=== PATIENT | male | born 1940 | race Hispanic/Latino ===

== ENCOUNTER 2018-09-04 07:36 | Inpatient (IN) | payer MEDICARE ==
[2018-09-04] MEDS ORDERED: ASPIRIN PO ONE (07:40)
[2018-09-04 08:03] LABS: Basophils # (Auto) 0.1 K/mm3 (0.0-0.1); Basophils % (Auto) 1.1 % (0.0-1.8); Eosinophils # (Auto) 0.1 K/mm3 (0.0-0.4); Eosinophils % (Auto) 0.6 % (0.0-4.3); Hematocrit 43.9 % (35.5-45.6); Hemoglobin 15.4 gm/dl (11.8-15.2); Lymphocytes # (Auto) 2.5 K/mm3 (1.2-5.4); Lymphocytes % (Auto) 28.5 % (13.4-35.0); Mean Corpuscular HGB Conc 35 % (32-34); Mean Corpuscular Volume 91 fl (84-94); Monocytes # (Auto) 0.6 K/mm3 (0.0-0.8); Monocytes % (Auto) 6.4 % (0.0-7.3); Platelet Count 294 K/mm3 (140-440); Red Cell Distribution Width 13.9 % (13.2-15.2)
--- NOTE | 2018-09-04 08:18 | XRay Report ---
PROCEDURE: XR CHEST ROUTINE 2V TECHNIQUE: PA and lateral chest radiographs were obtained. HISTORY: Chest Pain COMPARISONS: None. FINDINGS: No mediastinal shift. Cardiomegaly. Overlying sternotomy wires. Predominantly linear lingular opacity . Diffuse interstitial prominence. No pneumothorax or effusion. No acute skeletal finding. IMPRESSION: Sequela of prior heart surgery including lingular scarring/atelectasis. Mild interstitial edema versu s scarring is also present without definite effusion. This document is electronically signed by Miguel A Shafer MD., Sep 04 2018 08:16:00 AM ET
[2018-09-04 08:26] LABS: BUN/Creatinine Ratio 10; Blood Urea Nitrogen 11 mg/dL (9-20); Calcium 8.7 mg/dL (8.4-10.2); Hemolysis Index 4
--- NOTE | 2018-09-04 08:37 | Emergency Department Report ---
ED Chest Pain HPI - General Chief Complaint: Chest Pain Stated Complaint: CHEST PAIN Time Seen by Provider: 09/04/18 07:57 Source: patient, family Mode of arrival: Ambulatory Limitations: No Limitations - History of Present Illness Initial Comments: 78-year-old male with history of dementia, CAD presents to ED with left-sided chest pain since last night. Patient states pain woke him up from sleep. Patient denies nausea, vomiting, shortness of breath, diaphoresis. Pain is described as a tightness, nonradiating. Patient states he is not currently taking any medications. 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 PCP: Dr Francisco Huerta MD Complaint: chest pain -: Last night Onset: during rest Pain Location: left chest Pain Radiation: none Severity: moderate Quality: tightness Consistency: constant Improves With: nothing Worsens With: nothing re: denies: nausea, vomting, diaphoresis, dyspnea Treatments Prior to Arrival: none - Related Data Home Medications Medication Instructions Recorded Confirmed Last Taken Aspirin 325 mg FEEDTUBE ONCE 09/22/13 09/03/14 09/03/14 325 MG Escitalopram Oxalate [Lexapro] 10 mg FEEDTUBE QDAY 09/22/13 09/03/14 09/03/14 10 MG [place]-3 Fatty Acids [[place]-3] 1,000 mg FEEDTUBE BID 09/22/13 09/03/14 09/03/14 1,000 mg Ipratropium/Albuterol Sulfate 1 ampul IH Q8HRT 10/12/13 09/03/14 09/02/14 [DUONEB *Not for PRN Use*] 1 Previous Rx's Medication Instructions Recorded Last Taken Type Zolpidem [Ambien] 5 mg PO DAILY #15 tablet 09/30/13 09/03/14 Rx 5 mg Ferrous Sulfate [Feosol 325 MG tab] 325 mg PO TID #30 tablet 10/19/13 09/03/14 Rx 325 MG Lipase/Protease/Amylase [Pancreaze 1 each FEEDTUBE PRN PRN 30 Days 10/19/13 09/02/14 Rx 10,500 Unit] capsule 1 Metoprolol [Lopressor TAB] 12.5 mg PO BID #60 tablet 10/19/13 09/03/14 Rx 25 mg Sodium Bicarbonate 325 mg FEEDTUBE PRN PRN 30 Days 10/19/13 09/02/14 Rx tablet 325 mg Lisinopril [Zestril TAB] 2.5 mg PO QDAY #30 tablet 09/07/14 Unknown Rx Rosuvastatin Calcium [Crestor] 40 mg FEEDTUBE QHS #30 tablet 09/07/14 Unknown Rx ISOSORBIDE MONOnitrate [Imdur] 30 mg PO DAILY #7 tab.er.24h 09/08/14 Unknown Rx Nitroglycerin [Nitrostat] 0.4 mg SL ONCE PRN #30 tab 09/08/14 Unknown Rx Allergies Allergy/AdvReac Type Severity Reaction Status Date / Time Penicillins Allergy Rash Verified 12/24/15 14:34 Heart Score - HEART Score History: Slightly suspicious EKG: Non-specific Age: > 65 Risk factors: > 3 risk factors or hx of atherosclerotic disease Troponin: < normal limit HEART Score: 5 ED Review of Systems ROS: Stated complaint: CHEST PAIN Other details as noted in HPI Comment: All other systems reviewed and negative Respiratory: denies: cough, shortness of breath Cardiovascular: chest pain Gastrointestinal: denies: nausea, vomiting ED Past Medical Hx - Past Medical History Previous Medical History?: Yes Hx Hypertension: Yes Hx Heart Attack/AMI: Yes Hx Congestive Heart Failure: Yes Hx Diabetes: Yes Hx Liver Disease: Yes Hx Kidney Stones: Yes Additional medical history: high cholesterol. CAD - Surgical History Past Surgical History?: Yes Hx Open Heart Surgery: Yes Additional Surgical History: 5 bypass, back surgery, kidney surgery - Social History Smoking Status: Current Every Day Smoker Substance Use Type: Prescribed - Medications Home Medications: Home Medications Medication Instructions Recorded Confirmed Last Taken Type Aspirin 325 mg FEEDTUBE ONCE 09/22/13 09/03/14 09/03/14 History 325 MG Escitalopram Oxalate [Lexapro] 10 mg FEEDTUBE QDAY 09/22/13 09/03/14 09/03/14 History 10 MG [place]-3 Fatty Acids [[place]-3] 1,000 mg FEEDTUBE BID 09/22/13 09/03/14 09/03/14 History 1,000 mg Zolpidem [Ambien] 5 mg PO DAILY #15 tablet 09/30/13 09/03/14 09/03/14 Rx 5 mg Ipratropium/Albuterol Sulfate 1 ampul IH Q8HRT 10/12/13 09/03/14 09/02/14 History [DUONEB *Not for PRN Use*] 1 Ferrous Sulfate [Feosol 325 MG tab] 325 mg PO TID #30 tablet 10/19/13 09/03/14 09/03/14 Rx 325 MG Lipase/Protease/Amylase [Pancreaze 1 each FEEDTUBE PRN PRN 30 Days 10/19/13 09/03/14 09/02/[address] 10,500 Unit] capsule 1 Metoprolol [Lopressor TAB] 12.5 mg PO BID #60 tablet 10/19/13 09/03/14 09/03/14 Rx 25 mg Sodium Bicarbonate 325 mg FEEDTUBE PRN PRN 30 Days 10/19/13 09/03/14 09/02/14 Rx tablet 325 mg Lisinopril [Zestril TAB] 2.5 mg PO QDAY #30 tablet 09/07/14 Unknown Rx Rosuvastatin Calcium [Crestor] 40 mg FEEDTUBE QHS #30 tablet 09/07/14 Unknown Rx ISOSORBIDE MONOnitrate [Imdur] 30 mg PO DAILY #7 tab.er.24h 09/08/14 Unknown Rx Nitroglycerin [Nitrostat] 0.4 mg SL ONCE PRN #30 tab 09/08/14 Unknown Rx ED Physical Exam - General Limitations: No Limitations General appearance: alert, in no apparent distress - Head Head exam: Present: atraumatic, normocephalic - Eye Eye exam: Present: normal appearance - ENT ENT exam: Present: mucous membranes moist - Neck Neck exam: Present: normal inspection - Respiratory Respiratory exam: Present: normal lung sounds bilaterally. Absent: respiratory distress - Cardiovascular Cardiovascular Exam: Present: regular rate, normal rhythm - GI/Abdominal GI/Abdominal exam: Present: soft. Absent: distended, tenderness - Extremities Exam Extremities exam: Present: normal inspection - Neurological Exam Neurological exam: Present: alert - Psychiatric Psychiatric exam: Present: normal affect, normal mood - Skin Skin exam: Present: warm, dry, intact, normal color ED Course Vital Signs 09/04/18 09/04/18 09/04/18 07:37 08:28 08:30 Temperature 967.7 F H Pulse Rate 71 60 Respiratory 18 12 12 Rate Blood Pressure 162/83 151/74 O2 Sat by Pulse 98 96 Oximetry 09/04/18 09/04/18 09/04/18 08:45 08:49 09:03 Temperature 97.8 F Pulse Rate 60 59 L Respiratory 19 Rate Blood Pressure 151/72 O2 Sat by Pulse 91 Oximetry OLIVIER score - Olivier Score Age > 65: (1) Yes Aspirin use within the Past 7 Days: (1) Yes 3 or more CAD Risk Factors: (1) Yes 2 or more Angina events in past 24 hrs: (1) Yes Known CAD with more than 50% Stenosis: (1) Yes Elevated Cardiac Markers: (0) No ST Deviation Greater than 0.5mm: (0) No OLIVIER Score: 5 ED Medical Decision Making - Lab Data Result diagrams: 09/04/18 07:47 09/04/18 07:47 - EKG Data -: EKG Interpreted by Me EKG shows normal: sinus rhythm, axis, QRS complexes, ST-T waves Rate: normal - EKG Data Interpretation: LVH, other (prolonged NE, anterior Q waves) Critical care attestation.: If time is entered above; I have spent that time in minutes in the direct care of this critically ill patient, excluding procedure time. ED Disposition Clinical Impression: Chest pain Disposition: DC-09 OP ADMIT IP TO THIS HOSP Is pt being admited?: Yes Condition: Stable Time of Disposition: 08:43
[2018-09-04] MEDS ORDERED: NITROSTAT SL PRN (08:58)
[2018-09-04] MEDS ORDERED: NITROSTAT SL ONE (09:04)
[2018-09-04] MEDS: NITROSTAT SL PRN ×2 (09:05→09:10)
--- NOTE | 2018-09-04 10:42 | Consultation ---
History of Present Illness Consult date: 09/04/18 Consult reason: chest pain History of present illness: 78 year old male presented with left precordial chest pain at rest rad iating into his left shoulder. He denies any diaphoresis nausea or vomiting. Patient has a history of coronary artery disease and is status post coronary artery bypass surgery in 1995 regular [address] Dr[address] Florian Verdugo and his last cardiac catheterization was in 2014. At that time cardiac cocci shown nonobstructive disease in the left anterior descending artery as well as the circumflex artery with total occlusion in the right coronary artery the saphenous vein graft to the obtuse marginal diagonal now a right coronary artery as well as a DUFF to the LAD with essentially. Patient's left ventricular ejection fraction was 45-50%. His last visits with Dr. Verdugo was a couple of months ago. Past History Past Medical History: CAD, diabetes, hypertension, hyperlipidemia Past Surgical History: CABG Social history: smoking. denies: alcohol abuse Family history: no significant family history Medications and Allergies Allergies Allergy/AdvReac Type Severity Reaction Status Date / Time Penicillins Allergy Rash Verified 12/24/15 14:34 Home Medications Medication Instructions Recorded Confirmed Last Taken Type Donepezil [Aricept] 10 mg PO DAILY 09/04/18 09/04/18 09/03/18 History Memantine [Namenda] 10 mg PO DAILY 09/04/18 09/04/18 09/03/18 History QUEtiapine [SEROquel] 100 mg PO QDAY 09/04/18 09/04/18 09/03/18 History clonazePAM 2 mg PO BID 09/04/18 09/04/18 09/03/18 History Active Meds: Active Medications Nitroglycerin (Nitrostat) 0.4 mg SL .Q5MIN PRN PRN Reason: Chest Pain Last Admin: 09/04/18 09:10 Dose: 0.4 mg Documented by: Nitroglycerin (Nitrostat) 0.4 mg SL .Q5MIN PRN PRN Reason: Chest Pain Review of Systems Constitutional: no weight loss, no weight gain, no fatigue, no weakness Ears, nose, mouth and throat: no deferred, no ear pain, no nose pain, no dental pain, no mouth pain, no dysphagia Cardiovascular: chest pain, dyspnea on exertion, no orthopnea, no palpitations, no syncope, no lightheadedness Respiratory: no cough, no cough with sputum, no hemoptysis, no congestion, no pleurisy Gastrointestinal: no abdominal pain, no nausea, no vomiting, no melena Genitourinary Male: no dysuria, no hematuria, no flank pain Rectal: pain Musculoskeletal: no neck stiffness, no neck pain Integumentary: no rash, no pruritis Neurological: no paralysis, no weakness, no parathesias, no numbness, no vertigo Endocrine: no cold intolerance, no nocturia Hematologic/Lymphatic: no easy bruising, no easy bleeding Allergic/Immunologic: no urticaria, no allergic rhinitis Physical Examination Vital Signs Temp Pulse Resp BP Pulse Ox 97.7 F 71 18 162/83 98 09/04/18 07:37 09/04/18 07:37 09/04/18 07:37 09/04/18 07:37 09/04/18 07:37 General appearance: no acute distress, well-nourished HEENT: Positive: PERRL, Mucus Membranes Moist Neck: Positive: neck supple, trachea midline Cardiac: Positive: Reg Rate and Rhythm, S1/S2, S4, PMI, Laterally Displaced. Negative: Audible Murmur Lungs: Positive: clear to auscultation, Normal Breath Sounds Neuro: Positive: Grossly Intact Abdomen: Positive: Soft, Active Bowel Sounds. Negative: Tender, Distended Male genitourinary: Positive: normal Skin: Positive: Clear Incision: Cardiac Cath Site Musculoskeletal: No Pain, Normal Range of Motion Extremities: Present: normal. Absent: edema Results 09/04/18 07:47 09/04/18 07:47 CBC 09/04/18 Range/Units 07:47 WBC 8.9 (4.5-11.0) K/mm3 RBC 4.80 (3.65-5.03) M/mm3 Hgb 15.4 H (11.8-15.2) gm/dl Hct 43.9 (35.5-45.6) % Plt Count 294 (140-440) K/mm3 Lymph # 2.5 (1.2-5.4) K/mm3 Avery # 0.6 (0.0-0.8) K/mm3 Eos # 0.1 (0.0-0.4) K/mm3 Baso # 0.1 (0.0-0.1) K/mm3 Comprehensive Metabolic Panel 05/25/19 Range/Units 07:47 Sodium 143 (137-145) mmol/L Potassium 3.5 L (3.6-5.0) mmol/L Chloride 103.8 (98-107) mmol/L Carbon Dioxide 26 (22-30) mmol/L BUN 11 (9-20) mg/dL Creatinine 1.1 (0.8-1.5) mg/dL Glucose 141 H (75-100) mg/dL Calcium 8.7 (8.4-10.2) mg/dL EKG interpretations - Telemetry EKG Rhythm: Sinus Rhythm Assessment and Plan 1. Chest pain rule out ischemic coronary artery disease 2. History of coronary artery disease status posth coronary artery bypass surgery. 3. Essential hypertension 4. Type 2 diabetes mellitus 5. Hyper lipidemia 6. Dementia without behavioral abnormality. Plan. Patient currently stable and chest pain-free with start on anti-platelet therapy trans-derm nitroglycerin glycerin ointment and anticoagulation. Obtain records from Dr. Florian Verdugo's office regarding recent cardiac workup.
--- NOTE | 2018-09-04 13:33 | History and Physical Report ---
History of Present Illness Date of examination: 09/04/18 Date of admission: 09/04/18 08:43 Chief complaint: Chest pain History of present illness: Patient is 78 yo with coronary artery disease s/p CABG, hypertension, dementia. he presents with chest pain, left sided , 8/10, no radialtion. Chest pain like a tightness, worse on exertion. No shortness of breath, no fever, no diaphoresis, no syncope. He was seen evaluated in Emergency Dept. Cardiac enzymes normal. Wi ll admit to telemetry. Past History Past Medical History: CAD, diabetes, hypertension, hyperlipidemia Past Surgical History: CABG Social history: smoking. denies: alcohol abuse Family history: no significant family history Medications and Allergies Allergies Allergy/AdvReac Type Severity Reaction Status Date / Time Penicillins Allergy Rash Verified 12/24/15 14:34 Home Medications Medication Instructions Recorded Confirmed Last Taken Type Donepezil [Aricept] 10 mg PO DAILY 09/04/18 09/04/18 09/03/18 History Memantine [Namenda] 10 mg PO DAILY 09/04/18 09/04/18 09/03/18 History QUEtiapine [SEROquel] 100 mg PO QDAY 09/04/18 09/04/18 09/03/18 History clonazePAM 2 mg PO BID 09/04/18 09/04/18 09/03/18 History Active Meds: Active Medications Nitroglycerin (Nitrostat) 0.4 mg SL .Q5MIN PRN PRN Reason: Chest Pain Review of Systems All systems: negative (No fever, no abd pain, no vomiting. All other sy) Exam - Physical Exam Narrative exam: Gen: Not in acute distress, lying in bed, obese HEENT: Normocephalic, atraumatic Neck: supple, no JVD Heart: S1 and S2 reg, no murmurs, rubs or gallop Lungs: Clear, no crackles, no wheeze Abd: soft, non tender, non distended, normal BS Ext: No edema, no clubbing, no cyanosis, Neuro: Awake,alert, oriented x 3, moves all ext, non focal Psych:Normal mood, dementia - Constitutional Vitals: Temp Pulse Resp BP Pulse Ox 98.3 F 60 18 119/57 96 09/04/18 11:09 09/04/18 11:09 09/04/18 11:09 09/04/18 11:09 09/04/18 11:09 Results - Labs CBC & Chem 7: 09/05/18 22:30 09/05/18 22:30 Labs: Abnormal lab results 09/04/18 09/04/18 Range/Units 07:47 07:47 Hgb 15.4 H (11.8-15.2) gm/dl MCHC 35 H (32-34) % Potassium 3.5 L (3.6-5.0) mmol/L Glucose 141 H (75-100) mg/dL Assessment and Plan Chest pain Admit to telemetry Cardiology consulted and i discussed case with him Aspirin daily Serial Troponins CAD s/p CABG Aspirin Diabetes mellitus type 2 Fingerstick qac and hs Hypertension Monitor BP Full code status
[2018-09-04] MEDS ORDERED: PROVENTIL IH PRN (14:22)
[2018-09-04] MEDS ORDERED: SODIUM CHLORIDE FLUSH SYRINGE 10 ML IV PRN ×2 (14:22→14:25)
[2018-09-04] MEDS ORDERED: TYLENOL PO PRN (14:22)
[2018-09-04] MEDS: MORPHINE IV PRN (15:32)
[2018-09-04] MEDS: ZOFRAN IV PRN (15:32)
[2018-09-04] MEDS: ARICEPT PO SCH (15:32)
[2018-09-04] MEDS: NAMENDA PO SCH (15:32)
[2018-09-04] MEDS: SODIUM CHLORIDE FLUSH SYRINGE 10 ML IV SCH (22:58)
[2018-09-05] MEDS: MORPHINE IV PRN ×4 (05:04→18:14)
[2018-09-05 08:28] LABS: Hemoglobin 18.1 gm/dl (11.8-15.2); Mean Corpuscular HGB Conc 34 % (32-34); Mean Corpuscular Volume 92 fl (84-94); Platelet Count 356 K/mm3 (140-440); Red Blood Count 5.78 M/mm3 (3.65-5.03); Red Cell Distribution Width 14.1 % (13.2-15.2)
[2018-09-05 08:39] LABS: Hematocrit 53.2 % (35.5-45.6)
[2018-09-05 08:51] LABS: Calcium 8.6 mg/dL (8.4-10.2)
[2018-09-05] MEDS: NAMENDA PO SCH (09:23)
[2018-09-05] MEDS: ECOTRIN PO SCH (09:23)
[2018-09-05] MEDS: ARICEPT PO SCH (09:24)
[2018-09-05] MEDS: SODIUM CHLORIDE FLUSH SYRINGE 10 ML IV SCH ×2 (09:26→23:08)
--- NOTE | 2018-09-05 09:53 | Progress Note ---
Assessment and Plan 1. Chest pain rule out ischemic coronary artery disease 2. History of coronary artery disease status posth coronary artery bypass surgery. 3. Essential hypertension 4. Type 2 diabetes mellitus 5. Hyper lipidemia 6. COPD 7. Dementia without behavioral abnormality. Plan. Patient is stable and chest pain free . Troponin levels are normal. follow up with Dr Florian mott on discharge Subjective Date of service: 09/05/18 Interval history: No cardiac symptoms. Objective Vital Signs Temp Pulse Pulse Resp BP Pulse Ox 09/05/18 07:45 98.0 F 97 H 20 128/78 90 09/05/18 04:35 98.5 F 100 H 16 134/77 91 09/05/18 01:00 101 H 09/04/18 23:55 98.3 F 101 H 16 158/84 92 09/04/18 22:00 105 H 18 92 09/04/18 19:22 98.8 F 17 148/73 09/04/18 19:00 105 H 93 H 09/04/18 16:17 97.9 F 91 H 18 148/78 91 09/04/18 11:09 98.3 F 60 18 119/57 96 09/04/18 10:10 58 L 18 105/56 94 09/04/18 10:03 97.7 F 09/04/18 10:00 58 L 18 105/56 92 - Physical Examination General: Appears Well, No Apparent Distress HEENT: Positive: PERRL, Mucus Membranes Moist Neck: Positive: neck supple, trachea midline. Negative: JVD/HJR Cardiac: Positive: Regular Rate, S1/S2, PMI, Laterally Displaced. Negative: S3, S4 Lungs: Positive: clear to auscultation, No Wheeze, Rales, Rhonchi Neuro: Positive: Grossly Intact, No Lateralizing Findings Abdomen: Positive: Soft, Active Bowel Sounds. Negative: Tender, Distended Skin: Positive: Clear Incision: Cardiac Cath Site Musculoskeletal: No Pain, Normal Range of Motion Extremities: Present: normal. Absent: edema - Labs and Meds CBC 09/05/18 Range/Units 07:58 WBC 13.5 H (4.5-11.0) K/mm3 RBC 5.78 H (3.65-5.03) M/mm3 Hgb 18.1 H (11.8-15.2) gm/dl Hct 53.2 H D (35.5-45.6) % Plt Count 356 (140-440) K/mm3 Comprehensive Metabolic Panel 09/05/18 Range/Units 07:58 Sodium 141 (137-145) mmol/L Potassium 3.6 (3.6-5.0) mmol/L Chloride 101.2 (98-107) mmol/L Carbon Dioxide 18 L D (22-30) mmol/L BUN 29 H (9-20) mg/dL Creatinine 2.1 H D (0.8-1.5) mg/dL Glucose 152 H (75-100) mg/dL Calcium 8.6 (8.4-10.2) mg/dL - Telemetry EKG Rhythm: Sinus Rhythm - EKG Sinus rhythms and dysrhythmias: sinus rhythm
[2018-09-05] MEDS ORDERED: LOVENOX SUB-Q SCH (10:00)
[2018-09-05 10:51] LABS: Band Neutrophils # (Manual) 2.3 K/mm3; Basophils % (Manual) 0 % (0.0-1.8); Eosinophils % (Manual) 0 % (0.0-4.3); Platelet Estimate Consistent w Auto; RBC Morphology Normal; Total Cells Counted 100
[2018-09-05 11:55] LABS: Hematocrit 51.6 % (35.5-45.6); Hemoglobin 17.5 gm/dl (11.8-15.2); Mean Corpuscular HGB Conc 34 % (32-34); Mean Corpuscular Volume 92 fl (84-94); Platelet Count 322 K/mm3 (140-440); Red Cell Distribution Width 14.4 % (13.2-15.2)
[2018-09-05 12:13] LABS: Calcium 8.4 mg/dL (8.4-10.2)
[2018-09-05] MEDS ORDERED: NACL 0.9% 1000 ML 1,000 ML IV SCH (13:00)
--- NOTE | 2018-09-05 15:18 | Progress Note ---
Assessment and Plan Assessment and plan: Chest pain Admitted to telemetry Cardiology evaluated and states stable cardiac thompson Aspirin daily Serial Troponins neg Acute kidney Injury Cr 2.1, was 1.1 on admission Etiology unclear will start NS Consult Nephrology Obtain renal Ultrasound CAD s/p CABG Aspirin Diabetes mellitus type 2 Fingerstick qac and hs Hypertension Monitor BP Called [employer], Covered Button [employer] to transfer call to room to talk to son, family. She states , no phone in room and gave me cell phone to call Called son [phone] right away but no answer. Will update tomorrow Full code status History Interval history: No more chest pain No shortness of breath Hospitalist Physical - Physical exam Narrative exam: Gen: Not in acute distress, lying in bed, obese HEENT: Normocephalic, atraumatic Neck: supple, no JVD Heart: S1 and S2 reg, no murmurs, rubs or gallop Lungs: Clear, no crackles, no wheeze Abd: soft, non tender, non distended, normal BS Ext: No edema, no clubbing, no cyanosis, Neuro: Awake,alert, oriented x 3, moves all ext, non focal Psych:Normal mood, dementia - Constitutional Vitals: Temp Pulse Resp BP Pulse Ox 98.0 F 102 H 18 121/69 90 09/05/18 11:30 09/05/18 11:30 09/05/18 11:30 09/05/18 11:30 09/05/18 11:30 General appearance: Present: no acute distress, obese Results - Labs CBC & Chem 7: 09/05/18 22:30 09/05/18 22:30 Labs: Laboratory Last Values WBC 10.7 K/mm3 (4.5-11.0) 09/05/18 11:42 RBC 5.60 M/mm3 (3.65-5.03) H 09/05/18 11:42 Hgb 17.5 gm/dl (11.8-15.2) H 09/05/18 11:42 Hct 51.6 % (35.5-45.6) H 09/05/18 11:42 MCV 92 fl (84-94) 09/05/18 11:42 MCH 31 pg (28-32) 09/05/18 11:42 MCHC 34 % (32-34) 09/05/18 11:42 RDW 14.4 % (13.2-15.2) 09/05/18 11:42 Plt Count 322 K/mm3 (140-440) 09/05/18 11:42 Lymph % (Auto) 28.5 % (13.4-35.0) 09/04/18 07:47 [place]son % (Auto) 6.4 % (0.0-7.3) 09/04/18 07:47 Eos % (Auto) 0.6 % (0.0-4.3) 09/04/18 07:47 Baso % (Auto) 1.1 % (0.0-1.8) 09/04/18 07:47 Lymph # 2.5 K/mm3 (1.2-5.4) 09/04/18 07:47 [place]son # 0.6 K/mm3 (0.0-0.8) 09/04/18 07:47 Eos # 0.1 K/mm3 (0.0-0.4) 09/04/18 07:47 Baso # 0.1 K/mm3 (0.0-0.1) 09/04/18 07:47 Add Manual Diff Complete 09/05/18 07:58 Total Counted 100 09/05/18 07:58 Seg Neutrophils % 63.4 % (40.0-70.0) 09/04/18 07:47 Seg Neuts % (Manual) 62.0 % (40.0-70.0) 09/05/18 07:58 17.0 % 09/05/18 07:58 14.0 % (13.4-35.0) 09/05/18 07:58 Reactive Lymphs % (Man) 0 % 09/05/18 07:58 3.0 % (0.0-7.3) 09/05/18 07:58 0 % (0.0-4.3) 09/05/18 07:58 0 % (0.0-1.8) 09/05/18 07:58 4.0 % 09/05/18 07:58 0 % 09/05/18 07:58 0 % 09/05/18 07:58 0 % 09/05/18 07:58 Nucleated RBC % Not Reportable 09/05/18 07:58 Seg Neutrophils # 5.6 K/mm3 (1.8-7.7) 09/04/18 07:47 Seg Neutrophils # Man 8.4 K/mm3 (1.8-7.7) H 09/05/18 07:58 Band Neutrophils # 2.3 K/mm3 09/05/18 07:58 1.9 K/mm3 (1.2-5.4) 09/05/18 07:58 Abs React Lymphs (Man) 0.0 K/mm3 09/05/18 07:58 0.4 K/mm3 (0.0-0.8) 09/05/18 07:58 0.0 K/mm3 (0.0-0.4) 09/05/18 07:58 0.0 K/mm3 (0.0-0.1) 09/05/18 07:58 0.5 K/mm3 09/05/18 07:58 0.0 K/mm3 09/05/18 07:58 0.0 K/mm3 09/05/18 07:58 Blast Cells # 0.0 K/mm3 09/05/18 07:58 WBC Morphology Not Reportable 09/05/18 07:58 WBC Morphology TNR 09/05/18 07:58 Hypersegmented Neuts Not Reportable 09/05/18 07:58 Hyposegmented Neuts Not Reportable 09/05/18 07:58 Hypogranular Neuts Not Reportable 09/05/18 07:58 Not Reportable 09/05/18 07:58 Not Reportable 09/05/18 07:58 Not Reportable 09/05/18 07:58 Not Reportable 09/05/18 07:58 Not Reportable 09/05/18 07:58 Not Reportable 09/05/18 07:58 Consistent w auto 09/05/18 07:58 Not Reportable 09/05/18 07:58 Plt Clumps, EDTA Not Reportable 09/05/18 07:58 Not Reportable 09/05/18 07:58 Not Reportable 09/05/18 07:58 Not Reportable 09/05/18 07:58 Plt Morphology Comment Not Reportable 09/05/18 07:58 RBC Morphology Normal 09/05/18 07:58 Dimorphic RBCs Not Reportable 09/05/18 07:58 Not Reportable 09/05/18 07:58 Not Reportable 09/05/18 07:58 Not Reportable 09/05/18 07:58 Not Reportable 09/05/18 07:58 Not Reportable 09/05/18 07:58 Not Reportable 09/05/18 07:58 Not Reportable 09/05/18 07:58 Not Reportable 09/05/18 07:58 Not Reportable 09/05/18 07:58 Not Reportable 09/05/18 07:58 Not Reportable 09/05/18 07:58 Not Reportable 09/05/18 07:58 Not Reportable 09/05/18 07:58 Not Reportable 09/05/18 07:58 Not Reportable 09/05/18 07:58 Not Reportable 09/05/18 07:58 Not Reportable 09/05/18 07:58 Not Reportable 09/05/18 07:58 Not Reportable 09/05/18 07:58 Acanthocytes (Spur) Not Reportable 09/05/18 07:58 Rouleaux Not Reportable 09/05/18 07:58 Not Reportable 09/05/18 07:58 Not Reportable 09/05/18 07:58 Not Reportable 09/05/18 07:58 Not Reportable 09/05/18 07:58 Hem Pathologist Commnt No 09/05/18 07:58 Sodium 140 mmol/L (137-145) 09/05/18 11:42 Potassium 4.5 mmol/L (3.6-5.0) D 09/05/18 11:42 Chloride 101.9 mmol/L (98-107) 09/05/18 11:42 Carbon Dioxide 22 mmol/L (22-30) 09/05/18 11:42 21 mmol/L 09/05/18 11:42 BUN 35 mg/dL (9-20) H 09/05/18 11:42 2.7 mg/dL (0.8-1.5) H 09/05/18 11:42 Estimated GFR 23 ml/min 09/05/18 11:42 13 % 09/05/18 11:42 Glucose 176 mg/dL (75-100) H 09/05/18 11:42 Calcium 8.4 mg/dL (8.4-10.2) 09/05/18 11:42 < 0.010 ng/mL (0.00-0.029) 09/04/18 13:41 NT-Pro-B Natriuret Pep 278.8 pg/mL (0-900) 09/04/18 08:27 Active Medications - Current Medications Current Medications: Generic Name Dose Route Start Last Admin Trade Name Freq PRN Reason Stop Dose Admin Acetaminophen 650 mg 09/04/18 14:22 Tylenol PO Q4H PRN Pain MILD(1-3)/Fever >100.5/FONTANEZ Albuterol 2.5 mg 09/04/18 14:22 Proventil IH Q4HRT PRN Shortness Of Breath Aspirin 325 mg 09/05/18 10:00 09/05/18 09:23 Ecotrin PO 325 mg QDAY AMBROSE Administration Clonazepam 2 mg 09/04/18 22:00 09/05/18 09:23 Klonopin PO 2 mg BID AMBROSE Administration Donepezil HCl 10 mg 09/04/18 15:00 09/05/18 09:24 Aricept PO 10 mg DAILY AMBROSE Administration Enoxaparin Sodium 40 mg 09/05/18 10:00 09/05/18 09:24 Lovenox SUB-Q 40 mg DAILY AMBROSE Administration Sodium Chloride 1,000 mls @ 100 mls/hr 09/05/18 13:00 09/05/18 12:45 Nacl 0.9% 1000 Ml IV 100 mls/hr DIRECT AMBROSE Administration Memantine 10 mg 09/04/18 15:00 09/05/18 09:23 Namenda PO 10 mg DAILY AMBROSE Administration Morphine Sulfate 2 mg 09/04/18 14:22 09/05/18 14:28 Morphine IV 2 mg Q4H PRN Administration Pain, Moderate (4-6) Nitroglycerin 0.4 mg 09/04/18 08:58 Nitrostat SL .Q5MIN PRN Chest Pain Ondansetron HCl 4 mg 09/04/18 14:22 09/04/18 15:32 Zofran IV 4 mg Q8H PRN Administration Nausea And Vomiting Quetiapine Fumarate 100 mg 09/04/18 15:00 09/05/18 09:23 Seroquel PO 100 mg QDAY AMBROSE Administration Sodium Chloride 10 ml 09/04/18 22:00 09/05/18 09:26 Sodium Chloride Flush Syringe 10 Ml IV 10 ml BID AMBROSE Administration Sodium Chloride 10 ml 09/04/18 14:22 Sodium Chloride Flush Syringe 10 Ml IV PRN PRN LINE FLUSH Sodium Chloride 10 ml 09/04/18 14:25 Sodium Chloride Flush Syringe 10 Ml IV PRN PRN LINE FLUSH
--- NOTE | 2018-09-05 18:13 | Ultrasound Report ---
PROCEDURE: US RENAL BILAT TECHNIQUE: Transverse longitudinal sonograms obtained with costa scale sonography. HISTORY: [place] COMPARISONS: None FINDINGS: 9.8 x 5.9 x 6.2 cm. Cortex 1.7 cm. Increased cortical echogenicity. No hydronephrosis. Upper pole ech ogenic focus measuring 1.7 cm. Mid pole echogenic focus measuring 1.6 cm. Findings compatible with ca lculus. There is in addition an upper pole echogenic nodular area measuring 2.3 x 1.5 x 1.2 cm. This has the appearance of angiomyolipoma. Left kidney measures 10.4 x 5.5 x 4.7 cm. Cortex 1.6 cm. Increased cortical echogenicity. Multiple ec hogenic foci compatible with nonobstructing calculi. 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 At least 2 additional similar foci. Bladder appears unremarkable. IMPRESSION: Normal-sized kidneys Mild increase in cortical echogenicity compatible with medical renal disease No hydronephrosis Bilateral nonobstructing renal calculi 2.3 cm echogenic nodular area superior pole right kidney. Differential includes angiomyolipoma. Confi rmation of fat presence recommended with CT. This document is electronically signed by Hieu Starks MD., Sep 05 2018 06:11:14 PM ET
[2018-09-05] MEDS: ZOFRAN IV PRN (18:43)
[2018-09-05] MEDS ORDERED: LASIX ONE (20:55)
[2018-09-05] MEDS ORDERED: LASIX IV ONE (21:03)
[2018-09-05] MEDS: LOPRESSOR PO SCH ×2 (21:09→22:00)
[2018-09-05] MEDS ORDERED: SOLU-Medrol ONE (21:48)
[2018-09-05] MEDS ORDERED: LEVOPHED DRIP 4 MG/NS 250 ML 4 MG/250 ML BAG IV ONE (22:00)
[2018-09-05] MEDS ORDERED: TYLENOL PR PRN (22:10)
[2018-09-05] MEDS ORDERED: TYLENOL PR ONE (22:14)
[2018-09-05] MEDS ORDERED: LEVAQUIN 500MG/100ML 500 MG/100 ML BAG IV SCH (22:20)
[2018-09-05] MEDS ORDERED: LEVAQUIN 500MG/100ML 0 MG/0 ML BAG IV ONE (22:29)
[2018-09-05] MEDS ORDERED: LEVAQUIN 750MG/150ML 750 MG/150 ML BAG IV SCH (22:30)
[2018-09-05] MEDS ORDERED: MERREM/NS 500 MG/50 ML 500 MG/50 ML BAG IV SCH ×2 (22:30)
--- NOTE | 2018-09-05 22:31 | XRay Report ---
PROCEDURE: XR CHEST 1V AP TECHNIQUE: Chest radiograph single view. HISTORY: SOB COMPARISONS: CXR 09/04/2018 . FINDINGS: Heart: Normal. Mediastinum/Vessels: Normal. Lungs/Pleural space: Linear markings in the lingula are stable. Bony thorax: No acute osseous abnormality. Life support devices: Median sternotomy wires are again noted.. IMPRESSION: No change. Markings in the lingula are stable. This document is electronically signed by Jacqueline Satna MD., Sep 05 2018 10:28:57 PM ET
[2018-09-05] MEDS ORDERED: VASELINE LIP THERAPY TP PRN (22:39)
[2018-09-05] MEDS ORDERED: ARTIFICIAL TEARS OPHTH OINT OU PRN (22:39)
[2018-09-05] MEDS ORDERED: QUELICIN ONE (22:40)
[2018-09-05] MEDS ORDERED: AMIDATE IV ONE (22:40)
--- NOTE | 2018-09-05 22:45 | Event Note ---
CODE MET Called to see patient because he is hypotensive, diaphoretic and short of breath Symptoms started on 7pm, his IV fluids were stopped and given IV Lasix His current blood pressure is 60s systolic Patient with history of CHF, start levophed drip Check ABG, cardiac enzymes, repeat labs, cxr Give a dose of Solu-Medrol, start BiPAP Patient with decreased responsiveness, will intubate Start Levaquin, meropenem for pneumonia, rectal temp 102.1 Follow post intubation x-ray Consult critical care, transferred to ICU Discuss with family The high probability of a clinically significant, sudden or life threatening deterioration of the [CV, GI, respiratory] system(s) required my full and direct attention, intervention and personal management. The aggregate critical care time was [ 50] minutes. This time is in addition to time spent performing reported procedures but includes the following: x] Data Review and interpretation [x] Patient assessment and monitoring of vital signs [x] Documentation [x] Medication orders and management
[2018-09-05 22:49] LABS: Hematocrit 52.9 % (35.5-45.6); Hemoglobin 17.4 gm/dl (11.8-15.2); Mean Corpuscular HGB Conc 33 % (32-34); Mean Corpuscular Volume 97 fl (84-94); Red Blood Count 5.47 M/mm3 (3.65-5.03); Red Cell Distribution Width 15.1 % (13.2-15.2)
[2018-09-05 22:55] LABS: INR 1.47 (0.87-1.13)
[2018-09-05] MEDS ORDERED: LEVOPHED DRIP 4 MG/NS 250 ML 4 MG/250 ML BAG IV SCH (23:00)
[2018-09-05] MEDS ORDERED: ZOSYN/NS 3.375GM/50ML 3.375 GM/50 ML BAG IV SCH (23:00)
[2018-09-05] MEDS ORDERED: MIDAZOLAM 100 MG in NACL 0.9% 80 ML IV SCH (23:00)
[2018-09-05 23:02] LABS: BUN/Creatinine Ratio 10; Blood Urea Nitrogen 45 mg/dL (9-20); Calcium 8.8 mg/dL (8.4-10.2); Hemolysis Index 19
[2018-09-05 23:03] LABS: Platelet Count 339 K/mm3 (140-440)
--- NOTE | 2018-09-05 23:09 | XRay Report ---
PROCEDURE: XR CHEST 1V AP TECHNIQUE: Chest radiograph single view. HISTORY: Post intubation COMPARISONS: Earlier the same date . FINDINGS: Heart: Normal. Mediastinum/Vessels: Multiple sternal wires are present. Lungs/Pleural space: No consolidation or effusion. No pneumothorax. Bony thorax: No acute osseous abnormality. Life support devices: The endotracheal tube ends 4 cm above the curly. IMPRESSION: No acute cardiopulmonary abnormality. The endotracheal tube ends 4 cm above the curly.. This document is electronically signed by Dara Patel DO., Sep 05 2018 11:07:35 PM ET
[2018-09-05 23:23] LABS: Band Neutrophils # (Manual) 8.2 K/mm3; Basophils % (Manual) 0 % (0.0-1.8); Eosinophils % (Manual) 0 % (0.0-4.3); Giant Platelets 1+; Total Cells Counted 100
[2018-09-05 23:24] LABS: Ovalocytes Few; Platelet Estimate Consistent w Auto; Poikilocytosis Few
[2018-09-05] MEDS: VERSED IV PRN (23:33)
[2018-09-05] MEDS: Vasostrict 20 UNIT in NACL 0.9% 100 ML IV SCH (23:34)
--- NOTE | 2018-09-05 23:38 | Event Note ---
Date: 09/05/18 I was asked by Dr. Ramona Verdugo to place a central line for Mr. Avendano for low blood pressure requiring vasopressor. Under aseptic condition, no written consent obtained due to the emergency situation. Timeout performed. Patient already on the monitor. Mask, gown and gloves and sterile drape used. Lidocaine 2% used for local anesthesia. A triple lumen central catheter inserted to the right femoral vein was no complication with good blood retain. All ports aspirated and blood obtained for labs. Suture in place with 2-0 silk and Tegaderm applied. Patient tolerated the procedure very well. I was also asked by Dr. Ramona Verdugo to intubate the patient because of tachypnea and low oxygen saturation. Patient intubated successfully with 7.5 ET tube using rapid sequence intubation with succinylcholine and etomidate. Patient tolerated procedure well. Tube confirmed by direct visualization and good breath sounds both side of his chest and color change on the capnometry. Patient tolerated procedure very well. Chest x-ray order for further confirmation.
[2018-09-06] MEDS: LEVOPHED 8 MG in NACL 0.9% 250ML 242 ML IV SCH ×6 (00:40→22:25)
[2018-09-06] MEDS: SODIUM BICARBONATE 150 MEQ in D5W 1,000 ML IV SCH ×4 (00:45→23:02)
[2018-09-06] MEDS: VERSED IV PRN (02:20)
--- NOTE | 2018-09-06 03:12 | XRay Report ---
PROCEDURE: XR CHEST 1V AP TECHNIQUE: Chest radiograph single view. HISTORY: follow up respiratory failure COMPARISONS: 09/05/2018 . FINDINGS: Heart: The heart size is normal. There is evidence of previous coronary bypass surgery changes.. Mediastinum/Vessels: The lungs are not overtly congested.. Lungs/Pleural space: There is stable bilateral interstitial prominence which appears to be a chronic basis. There are no acute infiltrates or effusions.. Bony thorax: No acute osseous abnormality. Life support devices: The ET tube is 3 cm above the curly.. IMPRESSION: Stable appearance of the chest.. This document is electronically signed by Idris Bourgeois MD., Sep 06 2018 03:10:35 AM ET
--- NOTE | 2018-09-06 08:29 | Progress Note ---
Assessment and Plan Assessment and plan: 78 yo male patient with history of coronary artery disease s/p CABG, hypertension, dementia. Was admitted through emergency room with chest pain, evaluated by cardiology patient was found to be stable , cardiology cleared for discharge , however patient had worsening acute renal failure and last night padmini DOSHI was called as patient was found to be in acute respiratory failure and hypotension requiring intubation and ventilatory support. Patient was transferred to ICU placed on Levophed and vasopressin ,empiric antibiotics and pulmonary critical, nephrology, ID consulted --Acute hypoxic respiratory failure: requiring intubation, on ventilatory support Nebulizers, IV antibiotics, pulmonary critical consultation wean as tolerated and extubate --Septic shock/hypotension: cont Levophed and vasopressin IV fluids Supportive care --Sepsis; hypotension, leukocytosis, possible pneumonia Empiric antibiotics, follow cultures, ID consult --Acute Kidney injury :worsening renal function, oliguria due to vasomotor nephropathy,renal US findings reviewed Gentle hydration,avoid nephrotoxins,Nephrology consultation --Chest pain; present on admission,cardiology following Continue current cardiac medications --h/o CAD s/p CABG: Continue current medications --Dementia; continue Aricept and Namenda, supportive care --DVT prophylaxis; Lovenox renal dose --Full CODE STATUS Closely monitor the patient and adjust management as needed Elderly male patient with multiple medical problems, poor prognosis Patient's condition, prognosis, plan of care discussed in detail with the patient's sister and son At the bedside, they had multiple questions and concerns, addressed all of them CODE STATUS discussed;Full code at this point They will discuss with the family and inform us the code status Follow consults and recommendations Critical care time 50 minutes History Interval history: Patient seen and examined in ICU this morning medical records reviewed, multiple family members at the bedside Patient was initially admitted with chest pain evaluated by cardiology, and found the pt to be stable cardiac standpoint yesterday however noted to have worsening renal function, and renal workup was in progress Last night the patient became hypotensive and was in acute hypoxic respiratory failure intubated and transferred to ICU Hypotensive on 2 pressors, oliguric, in mild distress Patient remains intubated on ventilatory support Critically ill-looking, Vital signs reviewed Hospitalist Physical - Constitutional Vitals: Temp Pulse Resp BP Pulse Ox 99 F 108 H 37 H 109/42 96 09/06/18 04:00 09/06/18 08:15 09/06/18 08:15 09/06/18 08:15 09/06/18 08:15 General appearance: Present: mild distress, well-nourished, obese - EENT Eyes: Present: PERRL, EOM intact ENT: other (ET tube and Dobbhoff in place) - Neck Neck: Present: supple - Respiratory Respiratory effort: normal Respiratory: bilateral: diminished, rhonchi, negative: rales, wheezing - Cardiovascular Rhythm: regular Heart Sounds: Present: S1 & S2 - Extremities Extremities: no ischemia, No edema - Abdominal General gastrointestinal: soft, non-tender, non-distended, normal bowel sounds - Integumentary Integumentary: Present: clear, warm - Psychiatric Psychiatric: other (intubated and sedated) - Neurologic Neurologic: other (intubated on vent) Results - Labs CBC & Chem 7: 09/06/18 18:11 09/06/18 14:55 Labs: Laboratory Last Values WBC 14.6 K/mm3 (4.5-11.0) H 09/05/18 22:30 RBC 5.47 M/mm3 (3.65-5.03) H 09/05/18 22:30 Hgb 17.4 gm/dl (11.8-15.2) H 09/05/18 22:30 Hct 52.9 % (35.5-45.6) H 09/05/18 22:30 MCV 97 fl (84-94) H 09/05/18 22:30 MCH 32 pg (28-32) 09/05/18 22:30 MCHC 33 % (32-34) 09/05/18 22:30 RDW 15.1 % (13.2-15.2) 09/05/18 22:30 Plt Count 339 K/mm3 (140-440) 09/05/18 22:30 Lymph % (Auto) 28.5 % (13.4-35.0) 09/04/18 07:47 [place] % (Auto) 6.4 % (0.0-7.3) 09/04/18 07:47 Eos % (Auto) 0.6 % (0.0-4.3) 09/04/18 07:47 Baso % (Auto) 1.1 % (0.0-1.8) 09/04/18 07:47 Lymph # 2.5 K/mm3 (1.2-5.4) 09/04/18 07:47 [place] # 0.6 K/mm3 (0.0-0.8) 09/04/18 07:47 Eos # 0.1 K/mm3 (0.0-0.4) 09/04/18 07:47 Baso # 0.1 K/mm3 (0.0-0.1) 09/04/18 07:47 Add Manual Diff Complete 09/05/18 22:30 Total Counted 100 09/05/18 22:30 Seg Neutrophils % 63.4 % (40.0-70.0) 09/04/18 07:47 Seg Neuts % (Manual) 21.0 % (40.0-70.0) L 09/05/18 22:30 56.0 % 09/05/18 22:30 10.0 % (13.4-35.0) L 09/05/18 22:30 Reactive Lymphs % (Man) 0 % 09/05/18 22:30 6.0 % (0.0-7.3) 09/05/18 22:30 0 % (0.0-4.3) 09/05/18 22:30 0 % (0.0-1.8) 09/05/18 22:30 7.0 % 09/05/18 22:30 0 % 09/05/18 22:30 0 % 09/05/18 22:30 0 % 09/05/18 22:30 Nucleated RBC % Not Reportable 09/05/18 22:30 Seg Neutrophils # 5.6 K/mm3 (1.8-7.7) 09/04/18 07:47 Seg Neutrophils # Man 3.1 K/mm3 (1.8-7.7) 09/05/18 22:30 Band Neutrophils # 8.2 K/mm3 09/05/18 22:30 1.5 K/mm3 (1.2-5.4) 09/05/18 22:30 Abs React Lymphs (Man) 0.0 K/mm3 09/05/18 22:30 0.9 K/mm3 (0.0-0.8) H 09/05/18 22:30 0.0 K/mm3 (0.0-0.4) 09/05/18 22:30 0.0 K/mm3 (0.0-0.1) 09/05/18 22:30 1.0 K/mm3 09/05/18 22:30 0.0 K/mm3 09/05/18 22:30 0.0 K/mm3 09/05/18 22:30 Blast Cells # 0.0 K/mm3 09/05/18 22:30 WBC Morphology Not Reportable 09/05/18 22:30 Hypersegmented Neuts Not Reportable 09/05/18 22:30 Hyposegmented Neuts Not Reportable 09/05/18 22:30 Hypogranular Neuts Not Reportable 09/05/18 22:30 Not Reportable 09/05/18 22:30 Not Reportable 09/05/18 22:30 Not Reportable 09/05/18 22:30 Not Reportable 09/05/18 22:30 Not Reportable 09/05/18 22:30 Not Reportable 09/05/18 22:30 Consistent w auto 09/05/18 22:30 Not Reportable 09/05/18 22:30 Plt Clumps, EDTA Not Reportable 09/05/18 22:30 Not Reportable 09/05/18 22:30 1+ 09/05/18 22:30 Not Reportable 09/05/18 22:30 Plt Morphology Comment Not Reportable 09/05/18 22:30 RBC Morphology Not Reportable 09/05/18 22:30 Dimorphic RBCs Not Reportable 09/05/18 22:30 Not Reportable 09/05/18 22:30 Not Reportable 09/05/18 22:30 Few 09/05/18 22:30 Not Reportable 09/05/18 22:30 Not Reportable 09/05/18 22:30 Not Reportable 09/05/18 22:30 Not Reportable 09/05/18 22:30 Not Reportable 09/05/18 22:30 Not Reportable 09/05/18 22:30 Not Reportable 09/05/18 22:30 Not Reportable 09/05/18 22:30 Few 09/05/18 22:30 Not Reportable 09/05/18 22:30 Not Reportable 09/05/18 22:30 Not Reportable 09/05/18 22:30 Not Reportable 09/05/18 22:30 Not Reportable 09/05/18 22:30 Not Reportable 09/05/18 22:30 Not Reportable 09/05/18 22:30 Acanthocytes (Spur) Not Reportable 09/05/18 22:30 Rouleaux Not Reportable 09/05/18 22:30 Not Reportable 09/05/18 22:30 Not Reportable 09/05/18 22:30 Not Reportable 09/05/18 22:30 Not Reportable 09/05/18 22:30 Hem Pathologist Commnt No 09/05/18 22:30 PT 18.8 Sec. (12.2-14.9) H 09/05/18 22:30 INR 1.47 (0.87-1.13) H 09/05/18 22:30 POC ABG pH 7.224 (7.35-7.45) L 09/06/18 05:06 POC ABG pCO2 41.2 (35-45) 09/06/18 05:06 POC ABG pO2 85 (80-105) 09/06/18 05:06 POC ABG HCO3 17.0 (22-26 mml/L) 09/06/18 05:06 POC ABG Total CO2 18 (23-27mmol/L) 09/06/18 05:06 POC ABG O2 Sat 94 09/06/18 05:06 POC ABG Base Excess -11 ((-2) - (+3)mmol/L) 09/06/18 05:06 100 % 09/06/18 05:06 Sodium 139 mmol/L (137-145) 09/05/18 22:30 Potassium 4.1 mmol/L (3.6-5.0) 09/05/18 22:30 Chloride 99.8 mmol/L (98-107) 09/05/18 22:30 Carbon Dioxide 12 mmol/L (22-30) L D 09/05/18 22:30 31 mmol/L 09/05/18 22:30 BUN 45 mg/dL (9-20) H 09/05/18 22:30 4.5 mg/dL (0.8-1.5) H D 09/05/18 22:30 Estimated GFR 13 ml/min 09/05/18 22:30 10 % 09/05/18 22:30 Glucose 100 mg/dL (75-100) 09/05/18 22:30 POC Glucose 146 (70-105) H 09/05/18 21:00 Calcium 8.8 mg/dL (8.4-10.2) 09/05/18 22:30 < 0.010 ng/mL (0.00-0.029) 09/05/18 22:30 NT-Pro-B Natriuret Pep 278.8 pg/mL (0-900) 09/04/18 08:27 Active Medications - Current Medications Current Medications: Generic Name Dose Route Start Last Admin Trade Name Freq PRN Reason Stop Dose Admin Acetaminophen 650 mg 09/04/18 14:22 Tylenol PO Q4H PRN Pain MILD(1-3)/Fever >100.5/FONTANEZ Acetaminophen 650 mg 09/05/18 22:10 Tylenol VA Q4H PRN Non Cardiac Pain or Temp>100.5 Albuterol 2.5 mg 09/04/18 14:22 09/05/18 21:16 Proventil IH 2.5 mg Q4HRT PRN Administration Shortness Of Breath Aspirin 325 mg 09/05/18 10:00 09/05/18 09:23 Ecotrin PO 325 mg QDAY AMBROSE Administration Clonazepam 2 mg 09/04/18 22:00 09/05/18 23:06 Klonopin PO Not Given BID AMBROSE Donepezil HCl 10 mg 09/04/18 15:00 09/05/18 09:24 Aricept PO 10 mg DAILY AMBROSE Administration Enoxaparin Sodium 30 mg 09/06/18 10:00 Lovenox SUB-Q QDAY AMBROSE Hydrophilic Ointment 1 applic 09/05/18 22:39 Vaseline Lip Therapy TP Q2HR PRN Dry Lips Sodium Chloride 1,000 mls @ 100 mls/hr 09/05/18 13:00 09/05/18 22:00 Nacl 0.9% 1000 Ml IV 0 mls/hr DIRECT AMBROSE Infusion Midazolam HCl 100 mg/ Sodium 100 mls @ 2 mls/hr 09/05/18 23:00 09/06/18 02:23 Chloride IV 3 mg/hr TITR AMBROSE 3 mls/hr Titration Protocol 2 MG/HR Vasopressin 20 unit/ Sodium 101 mls @ 9.09 mls/hr 09/05/18 23:00 09/05/18 23:34 Chloride IV 0.03 units/min TITR AMBROSE 9.09 mls/hr Administration Protocol 0.03 UNITS/MIN Norepinephrine 8 mg/ Sodium 250 mls @ 3.75 mls/hr 09/06/18 01:00 09/06/18 06:49 Chloride IV 24 mcg/min TITR AMBROSE 45 mls/hr Titration Protocol 2 MCG/MIN Levofloxacin/Dextrose 500 mg in 100 mls @ 100 mls/hr 09/07/18 22:00 Levaquin 500mg/100ml IV Q48HR@2200 AMBROSE Meropenem 500 mg in 50 mls @ 50 mls/hr 09/06/18 10:00 Merrem/Ns 500 Mg/50 Ml IV Q12HR AMBROSE Sodium Bicarbonate 150 meq/ 1,150 mls @ 75 mls/hr 09/06/18 01:00 09/06/18 00:45 Dextrose IV 75 mls/hr DIRECT AMBROSE Administration Memantine 10 mg 09/04/18 15:00 09/05/18 09:23 Namenda PO 10 mg DAILY AMBROSE Administration Metoprolol Tartrate 25 mg 09/05/18 19:00 09/05/18 22:00 Lopressor PO Not Given BID [facility] Midazolam HCl 2 mg 09/05/18 22:39 09/06/18 02:20 Versed IV 2 mg Q10MIN PRN Administration Sedation Morphine Sulfate 2 mg 09/04/18 14:22 09/05/18 18:14 Morphine IV 2 mg Q4H PRN Administration Pain, Moderate (4-6) Multi-Ingred Cream/Lotion/Oil/Oint 1 applic 09/05/18 22:39 Artificial Tears Ophth Oint OU Q4HR PRN Dry Eye(s) Nitroglycerin 0.4 mg 09/04/18 08:58 Nitrostat SL .Q5MIN PRN Chest Pain Ondansetron HCl 4 mg 09/04/18 14:22 09/05/18 18:43 Zofran IV 4 mg Q8H PRN Administration Nausea And Vomiting Quetiapine Fumarate 100 mg 09/04/18 15:00 09/05/18 09:23 Seroquel PO 100 mg QDAY AMBROSE Administration Sodium Chloride 10 ml 09/04/18 22:00 09/05/18 23:08 Sodium Chloride Flush Syringe 10 Ml IV 10 ml BID AMBROSE Administration Sodium Chloride 10 ml 09/04/18 14:22 Sodium Chloride Flush Syringe 10 Ml IV PRN PRN LINE FLUSH
[2018-09-06] MEDS: Vasostrict 20 UNIT in NACL 0.9% 100 ML IV SCH ×2 (08:56→16:09)
--- NOTE | 2018-09-06 09:22 | XRay Report ---
AP ABDOMEN: HISTORY: Dobbhoff tube placement. The distal tip of the Dobbhoff tube overlies the antrum of the stomach near the pylorus. The bowel gas pattern is nonspecific. The visualized lung bases are clear. IMPRESSION: The Dobbhoff tube terminates in the distal stomach.
[2018-09-06] MEDS ORDERED: LOVENOX SUB-Q SCH (10:00)
[2018-09-06 10:31] LABS: Hematocrit 48.1 % (35.5-45.6); Hemoglobin 15.6 gm/dl (11.8-15.2); Mean Corpuscular HGB Conc 32 % (32-34); Mean Corpuscular Volume 97 fl (84-94); Red Blood Count 4.97 M/mm3 (3.65-5.03); Red Cell Distribution Width 14.7 % (13.2-15.2)
--- NOTE | 2018-09-06 10:34 | Consultation ---
History of Present Illness Consult date: 09/06/18 Requesting physician: VERA RUIZ Reason for consult: hypoxemia History of present illness: 78 y/o male, originally admitted 2 days ago with chest pain, who last night became, tachycardiac, diaphoretic and hypotensive. IMS evaluated patient and had ED place a central line and intubate. Per IMS note, has been followed by cards who felt cardiac status was stable. Patient also was in acute renal failure on admission which is no worsening. Currently patient is intubated and sedated on Versed. Follows some commands. Youngest son is at the bedside. Past History Past Medical History: CAD, diabetes, hypertension, hyperlipidemia Past Surgical History: CABG Social history: smoking. denies: alcohol abuse Family history: no significant family history Medications and Allergies Allergies Allergy/AdvReac Type Severity Reaction Status Date / Time Penicillins Allergy Rash Verified 12/24/15 14:34 Home Medications Medication Instructions Recorded Confirmed Last Taken Type Donepezil [Aricept] 10 mg PO DAILY 09/04/18 09/04/18 09/03/18 History Memantine [Namenda] 10 mg PO DAILY 09/04/18 09/04/18 09/03/18 History QUEtiapine [SEROquel] 100 mg PO QDAY 09/04/18 09/04/18 09/03/18 History clonazePAM 2 mg PO BID 09/04/18 09/04/18 09/03/18 History Active Meds: Active Medications Acetaminophen (Tylenol) 650 mg PO Q4H PRN PRN Reason: Pain MILD(1-3)/Fever >100.5/FONTANEZ Acetaminophen (Tylenol) 650 mg W[place] Q4H PRN PRN Reason: Non Cardiac Pain or Temp>100.5 Albuterol (Proventil) 2.5 mg IH Q4HRT PRN PRN Reason: Shortness Of Breath Last Admin: 09/05/18 21:16 Dose: 2.5 mg Documented by: Aspirin (Ecotrin) 325 mg PO QDAY [facility] Last Admin: 09/05/18 09:23 Dose: 325 mg Documented by: Clonazepam (Klonopin) 2 mg PO BID [facility] Last Admin: 09/05/18 23:06 Dose: Not Given Documented by: Donepezil HCl (Aricept) 10 mg PO DAILY [facility] Last Admin: 09/05/18 09:24 Dose: 10 mg Documented by: Enoxaparin Sodium (Lovenox) 30 mg SUB-Q QDAY [facility] Hydrophilic Ointment (Vaseline Lip Therapy) 1 applic TP Q2HR PRN PRN Reason: Dry Lips Sodium Chloride (Nacl 0.9% 1000 Ml) 1,000 mls @ 100 mls/hr IV DIRECT [facility] Last Infusion: 09/05/18 22:00 Dose: 0 mls/hr Documented by: Midazolam HCl 100 mg/ Sodium (Chloride) 100 mls @ 2 mls/hr IV TITR [facility]; Protocol Last Titration: 09/06/18 02:23 Dose: 3 mg/hr, 3 mls/hr Documented by: Vasopressin 20 unit/ Sodium (Chloride) 101 mls @ 9.09 mls/hr IV TITR [facility]; Protocol Last Admin: 09/06/18 08:56 Dose: 0.03 units/min, 9.09 mls/hr Documented by: Norepinephrine 8 mg/ Sodium (Chloride) 250 mls @ 3.75 mls/hr IV TITR [facility]; Protocol Last Admin: 09/06/18 10:11 Dose: 22 mcg/min, 41.25 mls/hr Documented by: Levofloxacin/Dextrose (Levaquin 500mg/100ml) 500 mg in 100 mls @ 100 mls/hr IV Q48HR@2200 [facility] Meropenem (Merrem/Ns 500 Mg/50 Ml) 500 mg in 50 mls @ 50 mls/hr IV Q12HR [facility] Sodium Bicarbonate 150 meq/ (Dextrose) 1,150 mls @ 75 mls/hr IV DIRECT [facility] Last Admin: 09/06/18 00:45 Dose: 75 mls/hr Documented by: Memantine (Namenda) 10 mg PO DAILY [facility] Last Admin: 09/05/18 09:23 Dose: 10 mg Documented by: Metoprolol Tartrate (Lopressor) 25 mg PO BID [facility] Last Admin: 09/05/18 22:00 Dose: Not Given Documented by: Midazolam HCl (Versed) 2 mg IV Q10MIN PRN PRN Reason: Sedation Last Admin: 09/06/18 02:20 Dose: 2 mg Documented by: Morphine Sulfate (Morphine) 2 mg IV Q4H PRN PRN Reason: Pain, Moderate (4-6) Last Admin: 09/05/18 18:14 Dose: 2 mg Documented by: Multi-Ingred Cream/Lotion/Oil/Oint (Artificial Tears Ophth Oint) 1 applic OU Q4HR PRN PRN Reason: Dry Eye(s) Nitroglycerin (Nitrostat) 0.4 mg SL .Q5MIN PRN PRN Reason: Chest Pain Ondansetron HCl (Zofran) 4 mg IV Q8H PRN PRN Reason: Nausea And Vomiting Last Admin: 09/05/18 18:43 Dose: 4 mg Documented by: Quetiapine Fumarate (Seroquel) 100 mg PO QDAY [facility] Last Admin: 09/05/18 09:23 Dose: 100 mg Documented by: Sodium Chloride (Sodium Chloride Flush Syringe 10 Ml) 10 ml IV BID [facility] Last Admin: 09/05/18 23:08 Dose: 10 ml Documented by: Sodium Chloride (Sodium Chloride Flush Syringe 10 Ml) 10 ml IV PRN PRN PRN Reason: LINE FLUSH Review of Systems ROS unobtainable: due to endotracheal tube, due to mental status Physical Examination Vital signs: Vital Signs Temp Pulse Resp BP Pulse Ox 97.7 F 71 18 162/83 98 09/04/18 07:37 09/04/18 07:37 09/04/18 07:37 09/04/18 07:37 09/04/18 07:37 General appearance: alert, appears uncomfortable Eyes: icteric ENT: other (orally intubated and sedated. ) Neck: supple Effort: mildly labored Ascultation: Bilateral: diminished breath sounds Cardiovascular: irregular rhythm Gastrointestinal: soft, other (mildly distended) Extremities: cool, edema Results - Laboratory Findings CBC and BMP: 09/06/18 09:50 09/05/18 22:30 ABG POC ABG pH 7.224 (7.35-7.45) L 09/06/18 05:06 POC ABG pCO2 41.2 (35-45) 09/06/18 05:06 POC ABG pO2 85 (80-105) 09/06/18 05:06 POC ABG HCO3 17.0 (22-26 mml/L) 09/06/18 05:06 POC ABG Total CO2 18 (23-27mmol/L) 09/06/18 05:06 POC ABG O2 Sat 94 09/06/18 05:06 PT/INR, D-dimer PT 18.8 Sec. (12.2-14.9) H 09/05/18 22:30 INR 1.47 (0.87-1.13) H 09/05/18 22:30 Abnormal lab findings: Abnormal Labs 09/04/18 09/04/18 09/05/18 07:47 07:47 07:58 WBC 13.5 H RBC 5.78 H Hgb 15.4 H 18.1 H Hct 53.2 H D MCV MCHC 35 H Seg Neuts % (Manual) Lymphocytes % (Manual) Seg Neutrophils # Man 8.4 H Monocytes # (Manual) PT INR POC ABG pH POC ABG pCO2 POC ABG pO2 Potassium 3.5 L Carbon Dioxide BUN Creatinine Glucose 141 H POC Glucose 09/05/18 09/05/18 09/05/18 07:58 11:42 11:42 WBC RBC 5.60 H Hgb 17.5 H Hct 51.6 H MCV MCHC Seg Neuts % (Manual) Lymphocytes % (Manual) Seg Neutrophils # Man Monocytes # (Manual) PT INR POC ABG pH POC ABG pCO2 POC ABG pO2 Potassium Carbon Dioxide 18 L D BUN 29 H 35 H Creatinine 2.1 H D 2.7 H Glucose 152 H 176 H POC Glucose 09/05/18 09/05/18 09/05/18 21:00 21:48 22:30 WBC 14.6 H RBC 5.47 H Hgb 17.4 H Hct 52.9 H MCV 97 H MCHC Seg Neuts % (Manual) 21.0 L Lymphocytes % (Manual) 10.0 L Seg Neutrophils # Man Monocytes # (Manual) 0.9 H PT INR POC ABG pH 7.183 L POC ABG pCO2 31.4 L POC ABG pO2 79 L Potassium Carbon Dioxide BUN Creatinine Glucose POC Glucose 146 H 09/05/18 09/05/18 09/05/18 22:30 22:30 23:57 WBC RBC Hgb Hct MCV MCHC Seg Neuts % (Manual) Lymphocytes % (Manual) Seg Neutrophils # Man Monocytes # (Manual) PT 18.8 H INR 1.47 H POC ABG pH 7.062 L POC ABG pCO2 POC ABG pO2 Potassium Carbon Dioxide 12 L D BUN 45 H Creatinine 4.5 H D Glucose POC Glucose 09/06/18 05:06 WBC RBC Hgb Hct MCV MCHC Seg Neuts % (Manual) Lymphocytes % (Manual) Seg Neutrophils # Man Monocytes # (Manual) PT INR POC ABG pH 7.224 L POC ABG pCO2 POC ABG pO2 Potassium Carbon Dioxide BUN Creatinine Glucose POC Glucose - Diagnostic Findings Chest x-ray: image reviewed Assessment and Plan 78 y/o male, originally admitted with chest pain, now with hypotension, atrial fibrillation and acute respiratory failure requiring intubation and mechanical vent support. 1. Per nursing, in report she was told patient had a fever. This is not documented in the chart. His CXR is not concerning for infection at this time. Patient was cultured and started on broad spec abx by IMS [employer] overnight. Will continue to monitor and de-escalate based on results. 2. Patient currently on 100% and PaO2 only 85. CXR more consistent with pulmonary edema, but mild. Reviewed old notes and there was some question of pulmonary fibrosis. That is not unreasonable given some of the changes seen at the bases on the CXR. Patient is not wheezing on exam but does smoke. At this point, will start steroids to see if they help improve oxygenation. Questions is to do stress dose given hypotension vs solumedrol. Cardiology does not believe this is cardiogenic shock and feel the EKG changes are insignificant. Will go ahead and start steroids 3. Patient is hypotensive, cool and clammy with afib. Currently on levophed and vasopressin and still with marginal blood pressures. Reviewed EKG changes and events documented from last evening with cards. At this point, they do not feel this is cardiogenic shock. They suggest echo and serial troponins. Patient has known CHF. Would like to give volume but given marginal oxygenation on 100% and no real room to increase PEEP given BP will have to rely on pressor therapy at this time. Agree with bicarb drip given severe metabolic acidosis, likely from poor perfusion. 4. Worsening renal failure. Appears renal consulted yesterday. Await their evaluation. Most likely worsening function related to poor perfusion from hypotension. 5. Overall prognosis is guarded to poor. Will continue supportive measures and follow up on pending studies. CCT 31 minutes.
[2018-09-06] MEDS: ECOTRIN PO SCH (10:50)
[2018-09-06] MEDS: SODIUM CHLORIDE FLUSH SYRINGE 10 ML IV SCH ×2 (10:52→21:55)
[2018-09-06] MEDS: LOPRESSOR PO SCH ×3 (10:52→21:59)
[2018-09-06 10:57] LABS: Creatine Kinase MB 165.1 ng/mL (0.0-4.0)
--- NOTE | 2018-09-06 11:03 | Progress Note ---
Assessment and Plan 1. Acute respiratory failure intubated on mechanical ventilatory 2. Elevated WBC trending up c/w sepsis/septic shock 3. Paroxysmal atrial fibrillation 4. Acute renal failure. 5. Chest pain rule out ischemic coronary artery disease 6. History of coronary artery disease status posth coronary artery bypass surgery. 7. Essential hypertension 8`. Type 2 diabetes mellitus 9. Hyper lipidemia 10. COPD 11. Dementia without behavioral abnormality. Plan. Patient's chest x-ray shows no significant change from admission chest x-ray. There is however significant increase in serum creatinine consistent with an acute kidney injury probably secondary to ATN there is also a nonspecific in crease in the serum troponin level probably a coin in the setting of acute renal failure this will be monitored for the period Patient has been seen by infectious disease and currently is being called but for sepsis. We will attempt to wean off IV pressor agents as indicated. Subjective Date of service: 09/06/18 Interval history: Events of the past 24 hours noted. Patient became short of breath and diaphoretic and had to be transferred to the unit we had a central line was place and patient was intubated secondary to his shortness of breath and desaturation. He currently is intubated sedated on a mechanical ventilator on multiple IV pressor agents.. Objective Vital Signs Temp Pulse Pulse Pulse Resp Resp BP 09/06/18 10:52 108 H 104/79 09/06/18 10:00 115 H 26 H 104/56 09/06/18 09:45 114 H 40 H 112/48 09/06/18 09:31 143 H 35 H 95/63 09/06/18 09:15 105 H 38 H 99/61 09/06/18 09:03 110 H 93/66 09/06/18 09:00 111 H 34 H 93/66 09/06/18 08:46 132 H 34 H 98/48 09/06/18 08:30 106 H 31 H 109/42 09/06/18 08:15 108 H 37 H 109/42 09/06/18 08:00 96.7 F L 108 H 39 H 114/87 09/06/18 07:46 110 H 39 H 105/59 09/06/18 07:30 110 H 35 H 114/87 09/06/18 07:16 114 H 35 H 114/87 09/06/18 07:00 113 H 34 H 116/68 09/06/18 06:45 114 H 24 116/68 09/06/18 06:30 115 H 119/66 09/06/18 06:15 115 H 40 H 112/63 09/06/18 06:00 115 H 39 H 110/66 09/06/18 05:45 116 H 29 H 113/70 09/06/18 05:30 119 H 38 H 97/76 09/06/18 05:15 119 H 39 H 114/72 09/06/18 05:00 118 H 39 H 126/73 09/06/18 04:45 119 H 38 H 107/71 09/06/18 04:30 120 H 36 H 113/68 09/06/18 04:18 118 H 114/68 09/06/18 04:15 119 H 38 H 118/69 09/06/18 04:00 99 F 120 H 117 H 28 H 114/68 09/06/18 03:45 120 H 38 H 94/64 09/06/18 03:30 119 H 37 H 115/58 09/06/18 03:16 122 H 37 H 115/58 09/06/18 03:00 120 H 37 H 105/63 09/06/18 02:45 121 H 37 H 92/57 09/06/18 02:30 121 H 37 H 113/63 09/06/18 02:15 125 H 38 H 113/63 09/06/18 02:00 124 H 37 H 123/58 09/06/18 01:46 126 H 37 H 123/58 09/06/18 01:30 126 H 38 H 106/56 09/06/18 01:15 128 H 33 H 106/56 09/06/18 01:00 131 H 39 H 106/62 09/06/18 00:45 131 H 37 H 102/58 09/06/18 00:40 128 H 78/54 09/06/18 00:30 131 H 34 H 98/60 09/06/18 00:15 127 H 36 H 77/53 09/06/18 00:00 129 H 126 H 37 H 79/53 09/05/18 23:46 131 H 36 H 79/49 09/05/18 23:30 129 H 35 H 93/54 09/05/18 23:15 128 H 41 H 83/57 09/05/18 23:00 122 H 36 H 87/50 09/05/18 22:52 124 H 79/47 09/05/18 22:46 119 H 14 110/53 09/05/18 22:30 124 H 35 H 71/47 09/05/18 22:16 124 H 35 H 77/37 09/05/18 22:00 129 H 41 H 60/39 09/05/18 21:58 120 H 29 H 09/05/18 21:20 112 H 32 H 09/05/18 21:16 102 H 38 H 09/05/18 21:09 126 H 93/58 09/05/18 20:56 09/05/18 20:08 131 H 22 92/57 09/05/18 16:27 117 H 106/69 09/05/18 11:30 98.0 F 102 H 18 121/69 Pulse Ox 09/06/18 10:52 09/06/18 10:00 92 09/06/18 09:45 95 09/06/18 09:31 94 09/06/18 09:15 92 09/06/18 09:03 93 09/06/18 09:00 97 09/06/18 08:46 98 09/06/18 08:30 96 09/06/18 08:15 96 09/06/18 08:00 95 09/06/18 07:46 99 09/06/18 07:30 96 09/06/18 07:16 09/06/18 07:00 97 09/06/18 06:45 96 09/06/18 06:30 94 09/06/18 06:15 96 09/06/18 06:00 95 09/06/18 05:45 96 09/06/18 05:30 96 09/06/18 05:15 97 09/06/18 05:00 96 09/06/18 04:45 96 09/06/18 04:30 97 09/06/18 04:18 95 09/06/18 04:15 96 09/06/18 04:00 95 09/06/18 03:45 95 09/06/18 03:30 94 09/06/18 03:16 94 09/06/18 03:00 92 09/06/18 02:45 92 09/06/18 02:30 92 05/27/19 02:15 92 09/06/18 02:00 91 09/06/18 01:46 91 09/06/18 01:30 92 09/06/18 01:15 92 09/06/18 01:00 90 09/06/18 00:45 92 09/06/18 00:40 91 09/06/18 00:30 97 09/06/18 00:15 93 09/06/18 00:00 89 09/05/18 23:46 90 09/05/18 23:30 92 09/05/18 23:15 09/05/18 23:00 91 09/05/18 22:52 93 09/05/18 22:46 91 09/05/18 22:30 51 L 09/05/18 22:16 56 L 09/05/18 22:00 09/05/18 21:58 88 09/05/18 21:20 92 09/05/18 21:16 09/05/18 21:09 09/05/18 20:56 83 L 09/05/18 20:08 83 L 09/05/18 16:27 89 09/05/18 11:30 90 - Physical Examination General: Other (Sedated on mechanical ventilator) HEENT: Positive: PERRL, Mucus Membranes Moist, Other (ET-tube in place) Neck: Positive: neck supple, trachea midline. Negative: JVD/HJR Cardiac: Positive: Irregularly Regular, S1/S2, S3, PMI, Dilated, Laterally Displaced. Negative: S4 Lungs: Positive: Rhonchi. Negative: Rales, Wheezes Neuro: Positive: No Lateralizing Findings, Other (sedated and intubated) Abdomen: Positive: Soft, Active Bowel Sounds. Negative: Tender, Distended Skin: Positive: Clear Incision: Cardiac Cath Site Musculoskeletal: No Pain, Normal Range of Motion Extremities: Present: normal. Absent: edema - Labs and Meds Cardiac Enzymes 09/06/18 Range/Units 09:50 CK-MB (CK-2) 165.1 H (0.0-4.0) ng/mL Coagulation 09/05/18 Range/Units 22:30 PT 18.8 H (12.2-14.9) Sec. INR 1.47 H (0.87-1.13) CBC 05/26/19 05/26/19 05/27/19 Range/Units 11:42 22:30 09:50 WBC 10.7 14.6 H 16.1 H (4.5-11.0) K/mm3 RBC 5.60 H 5.47 H 4.97 (3.65-5.03) M/mm3 Hgb 17.5 H 17.4 H 15.6 H (11.8-15.2) gm/dl Hct 51.6 H 52.9 H 48.1 H (35.5-45.6) % Plt Count 322 339 (140-440) K/mm3 Comprehensive Metabolic Panel 09/05/18 09/05/18 Range/Units 11:42 22:30 Sodium 140 139 (137-145) mmol/L Potassium 4.5 D 4.1 (3.6-5.0) mmol/L Chloride 101.9 99.8 (98-107) mmol/L Carbon Dioxide 22 12 L D (22-30) mmol/L BUN 35 H 45 H (9-20) mg/dL Creatinine 2.7 H 4.5 H D (0.8-1.5) mg/dL Glucose 176 H 100 (75-100) mg/dL Calcium 8.4 8.8 (8.4-10.2) mg/dL - EKG Sinus rhythms and dysrhythmias: sinus rhythm
[2018-09-06 11:08] LABS: Calcium 7.7 mg/dL (8.4-10.2)
[2018-09-06 11:09] LABS: Albumin 2.6 g/dL (3.9-5)
[2018-09-06] MEDS: ARICEPT PO SCH (11:10)
[2018-09-06] MEDS: NAMENDA PO SCH (11:10)
[2018-09-06] MEDS: MERREM/NS 500 MG/50 ML 500 MG/50 ML BAG IV SCH ×2 (11:11→21:54)
[2018-09-06 11:14] LABS: Chol/HDL Ratio 5.22 %
--- NOTE | 2018-09-06 12:01 | Event Note ---
Date: 09/06/18 Called to bedside as patient entered cardiac arrest. CPR already underway. Accessed right femoral line and epi given. After 2 minutes of CPR, pulse checked and present. During code, dark brown liquid expressed from patient mouth with compressions. Ordered mainor drip. Will order q6hour H/H's and coags to be checked stat. Placed NG/OG tube and placed on continuous suction. Overall prognosis remains guarded to poor. Spoke with sister outside of the room.
[2018-09-06] MEDS: NEO-SYNEPHRINE 100 MG in NACL 0.9% 90 ML IV SCH ×3 (12:30→20:51)
[2018-09-06 12:45] LABS: Band Neutrophils # (Manual) 5.8 K/mm3; Basophils % (Manual) 0 % (0.0-1.8); Eosinophils % (Manual) 0 % (0.0-4.3); Myelocytes # (Manual) 0.2 K/mm3; Total Cells Counted 100
[2018-09-06 12:47] LABS: Large Platelets Few; Platelet Clumps Rare; Platelet Estimate Consistent w Auto
[2018-09-06 12:48] LABS: Platelet Count 333 K/mm3 (140-440)
--- NOTE | 2018-09-06 13:05 | Consultation ---
History of Present Illness - Reason for Consult Consult date: 09/06/18 sepsis/septic shock Requesting physician: ERASTO LARRY - History of Present Illness 78 y/o male with history of active tobacco use, coronary artery disease s/p CABG, hypertension, dementia admitted on 09/04/2018 with few-hours onset of acute left sided tightness-like chest pain, 8 of 10, radiated to left shoulder. Denies any diaphoresis nausea or vomiting. Patient is unable to provide a history, intubated, sedated on 2 pressors. Son at bedside reports he has had worsening chest congestion and cough for last week. Patient's son does not live with him and came from out of town because he was admitted therefore he does not know details of his recent nicole. He reports he is a heavy smoker and his roommate told him patient was coughing more than usual the last week. Denies any recent fever, chills sick contacts. In the ED, temp 97.7, HR 71, R 18, BP 162/83, O2 sat 98%. WBC 8.9. Hg 15.4. Plat 298. Ddimer 4399. Creat 1.1. Trop <0.01. Patient became hypotensive and blood cultures were drawn on 09/05/2018 so far negative. CXR showed lingular scarring v/s atelectasis and mild interstitial infiltrates. Renal US bilateral non obstructive renal stones and 2.3 cm nodule. KUB normal. On 09/05/2018 at 7 pm patient became hypotensive SBP 60s, diaphoretic and short of breath. Started on levophed, solumedrol and lasix. Noted decreased responsiveness, rectal temp reported 102.2. Started on meropenem, levaquin. Creat 2.7. Patient went into cardiac arrest now on 2 pressors, ID consulted for presumed septic shock. ROS: unable to obtain Past History Past Medical History: CAD, diabetes, hypertension, hyperlipidemia Past Surgical History: CABG Social history: smoking. denies: alcohol abuse Family history: no significant family history Medications and Allergies Allergies Allergy/AdvReac Type Severity Reaction Status Date / Time Penicillins Allergy Rash Verified 12/24/15 14:34 Home Medications Medication Instructions Recorded Confirmed Last Taken Type Donepezil [Aricept] 10 mg PO DAILY 09/04/18 09/04/18 09/03/18 History Memantine [Namenda] 10 mg PO DAILY 09/04/18 09/04/18 09/03/18 History QUEtiapine [SEROquel] 100 mg PO QDAY 09/04/18 09/04/18 09/03/18 History clonazePAM 2 mg PO BID 09/04/18 09/04/18 09/03/18 History Active Meds: Active Medications Acetaminophen (Tylenol) 650 mg PO Q4H PRN PRN Reason: Pain MILD(1-3)/Fever >100.5/FONTANEZ Acetaminophen (Tylenol) 650 mg [place] Q4H PRN PRN Reason: Non Cardiac Pain or Temp>100.5 Albuterol (Proventil) 2.5 mg IH Q4HRT PRN PRN Reason: Shortness Of Breath Last Admin: 09/05/18 21:16 Dose: 2.5 mg Documented by: Aspirin (Ecotrin) 325 mg PO QDAY [facility] Last Admin: 09/06/18 10:50 Dose: 325 mg Documented by: Clonazepam (Klonopin) 2 mg PO BID [facility] Last Admin: 09/06/18 11:16 Dose: Not Given Documented by: Donepezil HCl (Aricept) 10 mg PO DAILY [facility] Last Admin: 09/06/18 11:10 Dose: 10 mg Documented by: Enoxaparin Sodium (Lovenox) 30 mg SUB-Q QDAY [facility] Last Admin: 09/06/18 10:51 Dose: 30 mg Documented by: Hydrocortisone Sodium Succinate (Solu-Cortef) 100 mg IV Q8HR [facility] Hydrophilic Ointment (Vaseline Lip Therapy) 1 applic TP Q2HR PRN PRN Reason: Dry Lips Sodium Chloride (Nacl 0.9% 1000 Ml) 1,000 mls @ 100 mls/hr IV DIRECT [facility] Last Infusion: 09/05/18 22:00 Dose: 0 mls/hr Documented by: Midazolam HCl 100 mg/ Sodium (Chloride) 100 mls @ 2 mls/hr IV TITR [facility]; Protocol Last Titration: 09/06/18 11:50 Dose: 0 mg/hr, 0 mls/hr Documented by: Vasopressin 20 unit/ Sodium (Chloride) 101 mls @ 9.09 mls/hr IV TITR [facility]; Protocol Last Admin: 09/06/18 08:56 Dose: 0.03 units/min, 9.09 mls/hr Documented by: Norepinephrine 8 mg/ Sodium (Chloride) 250 mls @ 3.75 mls/hr IV TITR [facility]; Protocol Last Titration: 09/06/18 11:22 Dose: 26 mcg/min, 48.75 mls/hr Documented by: Levofloxacin/Dextrose (Levaquin 500mg/100ml) 500 mg in 100 mls @ 100 mls/hr IV Q48HR@2200 [facility] Meropenem (Merrem/Ns 500 Mg/50 Ml) 500 mg in 50 mls @ 50 mls/hr IV Q12HR [facility] Last Admin: 09/06/18 11:11 Dose: 50 mls/hr Documented by: Sodium Bicarbonate 150 meq/ (Dextrose) 1,150 mls @ 75 mls/hr IV DIRECT [facility] Last Admin: 09/06/18 00:45 Dose: 75 mls/hr Documented by: Phenylephrine HCl 100 mg/ (Sodium Chloride) 100 mls @ 3 mls/hr IV TITR [facility]; Protocol Last Admin: 09/06/18 12:30 Dose: 300 mcg/min, 18 mls/hr Documented by: Memantine (Namenda) 10 mg PO DAILY [facility] Last Admin: 09/06/18 11:10 Dose: 10 mg Documented by: Metoprolol Tartrate (Lopressor) 25 mg PO BID [facility] Last Admin: 09/06/18 11:17 Dose: Not Given Documented by: Midazolam HCl (Versed) 2 mg IV Q10MIN PRN PRN Reason: Sedation Last Admin: 09/06/18 02:20 Dose: 2 mg Documented by: Morphine Sulfate (Morphine) 2 mg IV Q4H PRN PRN Reason: Pain, Moderate (4-6) Last Admin: 09/05/18 18:14 Dose: 2 mg Documented by: Multi-Ingred Cream/Lotion/Oil/Oint (Artificial Tears Ophth Oint) 1 applic OU Q4HR PRN PRN Reason: Dry Eye(s) Nitroglycerin (Nitrostat) 0.4 mg SL .Q5MIN PRN PRN Reason: Chest Pain Ondansetron HCl (Zofran) 4 mg IV Q8H PRN PRN Reason: Nausea And Vomiting Last Admin: 09/05/18 18:43 Dose: 4 mg Documented by: Quetiapine Fumarate (Seroquel) 100 mg PO QDAY [facility] Last Admin: 09/06/18 10:53 Dose: 100 mg Documented by: Sodium Chloride (Sodium Chloride Flush Syringe 10 Ml) 10 ml IV BID [facility] Last Admin: 09/06/18 10:52 Dose: 10 ml Documented by: Sodium Chloride (Sodium Chloride Flush Syringe 10 Ml) 10 ml IV PRN PRN PRN Reason: LINE FLUSH Physical Examination - Physical Exam Narrative exam: General appearance: sedated intubated on the vent Eyes: anicteric sclerae, moist conjunctivae; no lid-lag; PERRLA HENT: Atraumatic; oropharynx +ETT +NGT Neck: Trachea midline; supple, no thyromegaly or lymphadenopathy Lungs: daniela rhonchi CV: tachy Abdomen: Soft, non-tender Extremities:+daniela leg edema Skin: no rash Psych: sedated Neuro: sedated Right fem TLC - Constitutional Vitals: Vital Signs Temp Pulse Resp BP Pulse Ox 98.8 F 133 H 26 H 135/65 95 09/06/18 12:00 09/06/18 12:27 09/06/18 10:00 09/06/18 12:27 09/06/18 12:27 Temperature -Last 24 Hours Temperature 98.8 F Temperature 96.7 F Temperature 96.7 F Temperature 99 F Results - Labs CBC & Chem 7: 09/06/18 13:00 09/06/18 09:50 Labs: Abnormal lab results 09/05/18 09/05/18 09/05/18 Range/Units 21:00 21:48 22:30 WBC 14.6 H (4.5-11.0) K/mm3 RBC 5.47 H (3.65-5.03) M/mm3 Hgb 17.4 H (11.8-15.2) gm/dl Hct 52.9 H (35.5-45.6) % MCV 97 H (84-94) fl Seg Neuts % (Manual) 21.0 L (40.0-70.0) % Lymphocytes % (Manual) 10.0 L (13.4-35.0) % Seg Neutrophils # Man (1.8-7.7) K/mm3 Lymphocytes # (Manual) (1.2-5.4) K/mm3 Monocytes # (Manual) 0.9 H (0.0-0.8) K/mm3 PT (12.2-14.9) Sec. INR (0.87-1.13) D-Dimer (0-234) ng/mlDDU POC ABG pH 7.183 L (7.35-7.45) POC ABG pCO2 31.4 L (35-45) POC ABG pO2 79 L (80-105) Chloride (98-107) mmol/L Carbon Dioxide (22-30) mmol/L BUN (9-20) mg/dL Creatinine (0.8-1.5) mg/dL POC Glucose 146 H (70-105) Calcium (8.4-10.2) mg/dL Phosphorus (2.5-4.5) mg/dL Magnesium (1.7-2.3) mg/dL Total Bilirubin (0.1-1.2) mg/dL AST (5-40) units/L ALT (7-56) units/L Total Creatine Kinase (55-170) units/L CK-MB (CK-2) (0.0-4.0) ng/mL Troponin T (0.00-0.029) ng/mL Total Protein (6.3-8.2) g/dL Albumin (3.9-5) g/dL HDL Cholesterol (40-59) mg/dL 09/05/18 09/05/18 09/05/18 Range/Units 22:30 22:30 23:57 WBC (4.5-11.0) K/mm3 RBC (3.65-5.03) M/mm3 Hgb (11.8-15.2) gm/dl Hct (35.5-45.6) % MCV (84-94) fl Seg Neuts % (Manual) (40.0-70.0) % Lymphocytes % (Manual) (13.4-35.0) % Seg Neutrophils # Man (1.8-7.7) K/mm3 Lymphocytes # (Manual) (1.2-5.4) K/mm3 Monocytes # (Manual) (0.0-0.8) K/mm3 PT 18.8 H (12.2-14.9) Sec. INR 1.47 H (0.87-1.13) D-Dimer (0-234) ng/mlDDU POC ABG pH 7.062 L (7.35-7.45) POC ABG pCO2 (35-45) POC ABG pO2 (80-105) Chloride (98-107) mmol/L Carbon Dioxide 12 L D (22-30) mmol/L BUN 45 H (9-20) mg/dL Creatinine 4.5 H D (0.8-1.5) mg/dL POC Glucose (70-105) Calcium (8.4-10.2) mg/dL Phosphorus (2.5-4.5) mg/dL Magnesium (1.7-2.3) mg/dL Total Bilirubin (0.1-1.2) mg/dL AST (5-40) units/L ALT (7-56) units/L Total Creatine Kinase (55-170) units/L CK-MB (CK-2) (0.0-4.0) ng/mL Troponin T (0.00-0.029) ng/mL Total Protein (6.3-8.2) g/dL Albumin (3.9-5) g/dL HDL Cholesterol (40-59) mg/dL 09/06/18 09/06/18 09/06/18 Range/Units 05:06 09:50 09:50 WBC 16.1 H (4.5-11.0) K/mm3 RBC (3.65-5.03) M/mm3 Hgb 15.6 H (11.8-15.2) gm/dl Hct 48.1 H (35.5-45.6) % MCV 97 H (84-94) fl Seg Neuts % (Manual) (40.0-70.0) % Lymphocytes % (Manual) 3.0 L (13.4-35.0) % Seg Neutrophils # Man 8.4 H (1.8-7.7) K/mm3 Lymphocytes # (Manual) 0.5 L (1.2-5.4) K/mm3 Monocytes # (Manual) (0.0-0.8) K/mm3 PT (12.2-14.9) Sec. INR (0.87-1.13) D-Dimer (0-234) ng/mlDDU POC ABG pH 7.224 L (7.35-7.45) POC ABG pCO2 (35-45) POC ABG pO2 (80-105) Chloride 94.0 L (98-107) mmol/L Carbon Dioxide 17 L (22-30) mmol/L BUN 58 H (9-20) mg/dL Creatinine 5.9 H (0.8-1.5) mg/dL POC Glucose (70-105) Calcium 7.7 L (8.4-10.2) mg/dL Phosphorus 11.20 H (2.5-4.5) mg/dL Magnesium 2.40 H (1.7-2.3) mg/dL Total Bilirubin 1.70 H (0.1-1.2) mg/dL AST 1370 H (5-40) units/L ALT 516 H (7-56) units/L Total Creatine Kinase (55-170) units/L CK-MB (CK-2) (0.0-4.0) ng/mL Troponin T (0.00-0.029) ng/mL Total Protein 5.6 L (6.3-8.2) g/dL Albumin 2.6 L (3.9-5) g/dL HDL Cholesterol (40-59) mg/dL 09/06/18 09/06/18 09/06/18 Range/Units 09:50 09:50 12:39 WBC (4.5-11.0) K/mm3 RBC (3.65-5.03) M/mm3 Hgb (11.8-15.2) gm/dl Hct (35.5-45.6) % MCV (84-94) fl Seg Neuts % (Manual) (40.0-70.0) % Lymphocytes % (Manual) (13.4-35.0) % Seg Neutrophils # Man (1.8-7.7) K/mm3 Lymphocytes # (Manual) (1.2-5.4) K/mm3 Monocytes # (Manual) (0.0-0.8) K/mm3 PT (12.2-14.9) Sec. INR (0.87-1.13) D-Dimer 4399.70 H (0-234) ng/mlDDU POC ABG pH (7.35-7.45) POC ABG pCO2 (35-45) POC ABG pO2 (80-105) Chloride (98-107) mmol/L Carbon Dioxide (22-30) mmol/L BUN (9-20) mg/dL Creatinine (0.8-1.5) mg/dL POC Glucose 155 H (70-105) Calcium (8.4-10.2) mg/dL Phosphorus (2.5-4.5) mg/dL Magnesium (1.7-2.3) mg/dL Total Bilirubin (0.1-1.2) mg/dL AST (5-40) units/L ALT (7-56) units/L Total Creatine Kinase 6368 H (55-170) units/L CK-MB (CK-2) 165.1 H (0.0-4.0) ng/mL Troponin T 0.088 H D (0.00-0.029) ng/mL Total Protein (6.3-8.2) g/dL Albumin (3.9-5) g/dL HDL Cholesterol 22 L (40-59) mg/dL 09/06/18 Range/Units 12:50 WBC (4.5-11.0) K/mm3 RBC (3.65-5.03) M/mm3 Hgb (11.8-15.2) gm/dl Hct (35.5-45.6) % MCV (84-94) fl Seg Neuts % (Manual) (40.0-70.0) % Lymphocytes % (Manual) (13.4-35.0) % Seg Neutrophils # Man (1.8-7.7) K/mm3 Lymphocytes # (Manual) (1.2-5.4) K/mm3 Monocytes # (Manual) (0.0-0.8) K/mm3 PT (12.2-14.9) Sec. INR (0.87-1.13) D-Dimer (0-234) ng/mlDDU POC ABG pH 7.134 L (7.35-7.45) POC ABG pCO2 45.2 H (35-45) POC ABG pO2 70 L (80-105) Chloride (98-107) mmol/L Carbon Dioxide (22-30) mmol/L BUN (9-20) mg/dL Creatinine (0.8-1.5) mg/dL POC Glucose (70-105) Calcium (8.4-10.2) mg/dL Phosphorus (2.5-4.5) mg/dL Magnesium (1.7-2.3) mg/dL Total Bilirubin (0.1-1.2) mg/dL AST (5-40) units/L ALT (7-56) units/L Total Creatine Kinase (55-170) units/L CK-MB (CK-2) (0.0-4.0) ng/mL Troponin T (0.00-0.029) ng/mL Total Protein (6.3-8.2) g/dL Albumin (3.9-5) g/dL HDL Cholesterol (40-59) mg/dL Assessment and Plan Cultures: Blood cultures 09/05/2018 no growth for now Sputum culture 09/05/2018 n growth so far Assessment: 78 y/o male with history of active tobacco use, coronary artery disease s/p CABG, hypertension, dementia admitted on 09/04/2018 with few-hours onset of acute left sided tightness-like chest pain, 8 of 10, radiated to left shoulder, initial admitted to the floor, on 09/04/2018 had a fever 102, AMS and severe hypotension, now s/p cardiac arrest: 1) Severe Sepsis with septic shock s/p cardiac arrest: NOT present on admission, manifested by fever (rectal temp reported 102.2), tachycardia, severe hypotrension, leukocytosis with bandemia 17-->56%, ROBSON and AMS. Etiology unclear. DDx. aspiration pneumonia v/s COPD exacerbation with early pneumonia?, UTI?, bacteremia?, intra-abdominal source ?,other non infection sources ? PE. Currently on 2 pressors. On meropenem, levaquin. Son at bedside reports he has h ad worsening chest congestion and cough for last week. Ddimer 4399. 2) Acute encephalopathy: toxic metabolic 3) ROBSON: renally dosed all antibiotics, initial Creat 1.1 now 2.3. Renal US bilateral non obstructive renal stones and 2.3 cm nodule. 4) Acute respiratory failure: CXR showed lingular scarring v/s atelectasis and mild interstitial infiltrates. currently intubated. 5) ?COPD exacerbation 6) Penicillin allergy: tolerating meropenem Recommendations: - follow-up blood and sputum cultures - STAT UA and urine culture - STAT procalcitonin/CRP - continue meropenem renally adjusted - continue levaquin renally adjusted - add vancomycin and fluconazole renally adjusted - repeat CXR and KUB tomorrow - CT chest/abdomen when stable - remove femoral TLC as possible Guarded prognosis, discussed with son Will follow. Delmy Lance MD Infectious Diseases Supervisor [employer] [facility] M [phone] O [phone]
[2018-09-06 13:27] LABS: Hematocrit 44.1 % (35.5-45.6); Hemoglobin 14.1 gm/dl (11.8-15.2)
[2018-09-06 13:37] LABS: INR 2.54 (0.87-1.13)
[2018-09-06 13:38] LABS: Partial Thromboplastin Time 40.5 Sec. (24.2-36.6)
--- NOTE | 2018-09-06 13:55 | Event Note ---
Date: 09/06/18 Around 11:34 AM patient had cardiac arrest CODE BLUE was called, CPR was done per ACLS protocol Supervised by plaster machine operator Dr. Downs, spontaneous circulation returned, medications were optimized Discussed patient's condition and poor prognosis, treatment plan in detail with the family members including his son and his sister, addressed all their questions and concerns. After discussing With multiple family members, patient's son has decided DO NOT RESUSCITATE status. Signed necessary papers. Patient is DO NOT RESUSCITATE; with complete treatment Disposition; closely monitor Consider hospice consult if needed Follow-up consults and recommendations Very poor prognosis Critical care time 35 minutes
[2018-09-06] MEDS ORDERED: VANCOMYCIN/NS 1 GM/250 ML 1 GM/250 ML BAG IV SCH (14:00)
[2018-09-06] MEDS ORDERED: .VANCOMYCIN VIAL 1,000 MG in NACL 0.9% 100 ML IV SCH (14:00)
[2018-09-06] MEDS ORDERED: DIFLUCAN 200 MG/100 ML BAG IV SCH (14:00)
--- NOTE | 2018-09-06 14:38 | Consultation ---
History of Present Illness - Reason for Consult Consult date: 09/06/18 acute renal failure, metabolic acidosis - History of Present Illness The patient is a 78 YO male with history significant for HTN, Dementia, Tobacco use and CAD s/p CABG who was admitted on 09/04/2018 with left sided chest ti ghtness that radiated to the left shoulder. Patient was unable to provide a history. Patient went into Cardiac arrest, intubated on vent and on 3 pressors. Patient has feevr. Labs significant for creatinine 5.9, bicarb 17, elevated ALT & AST, CK 6368 and Troponin 0.08. Nephrology was consulted for further evaluation and treatment of ROBSON. Past History Past Medical History: CAD, diabetes, hypertension, hyperlipidemia Past Surgical History: CABG Social history: smoking. denies: alcohol abuse Family history: no significant family history Medications and Allergies Allergies Allergy/AdvReac Type Severity Reaction Status Date / Time Penicillins Allergy Rash Verified 12/24/15 14:34 Home Medications Medication Instructions Recorded Confirmed Last Taken Type Donepezil [Aricept] 10 mg PO DAILY 09/04/18 09/04/18 09/03/18 History Memantine [Namenda] 10 mg PO DAILY 09/04/18 09/04/18 09/03/18 History QUEtiapine [SEROquel] 100 mg PO QDAY 09/04/18 09/04/18 09/03/18 History clonazePAM 2 mg PO BID 09/04/18 09/04/18 09/03/18 History Active Meds: Active Medications Acetaminophen (Tylenol) 650 mg PO Q4H PRN PRN Reason: Pain MILD(1-3)/Fever >100.5/FONTANEZ Acetaminophen (Tylenol) 650 mg [place] Q4H PRN PRN Reason: Non Cardiac Pain or Temp>100.5 Albuterol (Proventil) 2.5 mg IH Q4HRT PRN PRN Reason: Shortness Of Breath Last Admin: 09/05/18 21:16 Dose: 2.5 mg Documented by: Aspirin (Ecotrin) 325 mg PO QDAY [facility] Last Admin: 09/06/18 10:50 Dose: 325 mg Documented by: Clonazepam (Klonopin) 2 mg PO BID [facility] Last Admin: 09/06/18 11:16 Dose: Not Given Documented by: Donepezil HCl (Aricept) 10 mg PO DAILY [facility] Last Admin: 09/06/18 11:10 Dose: 10 mg Documented by: Enoxaparin Sodium (Lovenox) 30 mg SUB-Q QDAY [facility] Last Admin: 09/06/18 10:51 Dose: 30 mg Documented by: Hydrocortisone Sodium Succinate (Solu-Cortef) 100 mg IV Q8HR [facility] Hydrophilic Ointment (Vaseline Lip Therapy) 1 applic TP Q2HR PRN PRN Reason: Dry Lips Sodium Chloride (Nacl 0.9% 1000 Ml) 1,000 mls @ 100 mls/hr IV DIRECT [facility] Last Infusion: 09/05/18 22:00 Dose: 0 mls/hr Documented by: Midazolam HCl 100 mg/ Sodium (Chloride) 100 mls @ 2 mls/hr IV TITR [facility]; Protocol Last Titration: 09/06/18 11:50 Dose: 0 mg/hr, 0 mls/hr Documented by: Vasopressin 20 unit/ Sodium (Chloride) 101 mls @ 9.09 mls/hr IV TITR [facility]; Protocol Last Admin: 09/06/18 08:56 Dose: 0.03 units/min, 9.09 mls/hr Documented by: Norepinephrine 8 mg/ Sodium (Chloride) 250 mls @ 3.75 mls/hr IV TITR [facility]; Protocol Last Titration: 09/06/18 11:30 Dose: 28 mcg/min, 52.5 mls/hr Documented by: Levofloxacin/Dextrose (Levaquin 500mg/100ml) 500 mg in 100 mls @ 100 mls/hr IV Q48HR@2200 [facility] Meropenem (Merrem/Ns 500 Mg/50 Ml) 500 mg in 50 mls @ 50 mls/hr IV Q12HR [facility] Last Admin: 09/06/18 11:11 Dose: 50 mls/hr Documented by: Sodium Bicarbonate 150 meq/ (Dextrose) 1,150 mls @ 75 mls/hr IV DIRECT [facility] Last Admin: 09/06/18 00:45 Dose: 75 mls/hr Documented by: Phenylephrine HCl 100 mg/ (Sodium Chloride) 100 mls @ 3 mls/hr IV TITR [facility]; Protocol Last Titration: 09/06/18 12:45 Dose: 400 mcg/min, 24 mls/hr Documented by: Fluconazole (Diflucan) 200 mg in 100 mls @ 100 mls/hr IV Q24HR [facility]; Protocol Vancomycin HCl (Vancomycin/Ns 1 Gm/250 Ml) 1 gm in 250 mls @ 166.667 mls/hr IV Q48H [facility] Memantine (Namenda) 10 mg PO DAILY [facility] Last Admin: 09/06/18 11:10 Dose: 10 mg Documented by: Metoprolol Tartrate (Lopressor) 25 mg PO BID [facility] Last Admin: 09/06/18 11:17 Dose: Not Given Documented by: Midazolam HCl (Versed) 2 mg IV Q10MIN PRN PRN Reason: Sedation Last Admin: 09/06/18 02:20 Dose: 2 mg Documented by: Morphine Sulfate (Morphine) 2 mg IV Q4H PRN PRN Reason: Pain, Moderate (4-6) Last Admin: 09/05/18 18:14 Dose: 2 mg Documented by: Multi-Ingred Cream/Lotion/Oil/Oint (Artificial Tears Ophth Oint) 1 applic OU Q4HR PRN PRN Reason: Dry Eye(s) Nitroglycerin (Nitrostat) 0.4 mg SL .Q5MIN PRN PRN Reason: Chest Pain Ondansetron HCl (Zofran) 4 mg IV Q8H PRN PRN Reason: Nausea And Vomiting Last Admin: 09/05/18 18:43 Dose: 4 mg Documented by: Quetiapine Fumarate (Seroquel) 100 mg PO QDAY [facility] Last Admin: 09/06/18 10:53 Dose: 100 mg Documented by: Sodium Chloride (Sodium Chloride Flush Syringe 10 Ml) 10 ml IV BID [facility] Last Admin: 09/06/18 10:52 Dose: 10 ml Documented by: Sodium Chloride (Sodium Chloride Flush Syringe 10 Ml) 10 ml IV PRN PRN PRN Reason: LINE FLUSH Review of Systems ROS unobtainable: due to mental status Exam - Vital Signs Vital signs: Vital Signs Temp Pulse Resp BP Pulse Ox 97.7 F 71 18 162/83 98 09/04/18 07:37 09/04/18 07:37 09/04/18 07:37 09/04/18 07:37 09/04/18 07:37 - General Appearance General appearance: well-developed, well-nourished, appears stated age, intubated, other (on vent) EENT: ATNC, PERRL Neck: Present: neck supple, trachea midline Respiratory: Clear to Ascultation Heart: tachycardia, S1S2, no murmurs Gastrointestinal: Present: absent bowel sounds Integumentary: no rash Neurologic: obtunded Musculoskeletal: Present: other (no edema) Results - Lab Results 09/07/18 00:45 09/06/18 14:55 Most recent lab results Calcium 7.7 mg/dL (8.4-10.2) L 09/06/18 09:50 Phosphorus 11.20 mg/dL (2.5-4.5) H 09/06/18 09:50 Magnesium 2.40 mg/dL (1.7-2.3) H 09/06/18 09:50 - Image Kidney/bladder ultrasound: report reviewed Assessment and Plan 1. Acute kidney injury: Vasomotor ROBSON in the setting of shock and cardiac arrest. Renal function continue to decline. Currently he is on multiple pressors. Renal prognosis is guarded to poor. Continue IV fluids. Monitor renal function. Patient would not tolerate hemodialysis at this time. D/w family. 2. Shock: Currently patient is on 3 different pressors. Remain hypotensive. 3. Respiratory failure: On vent. 4. S/p Cardiac arrest. 5. Rhabdomyolysis: Continue IV fluids. 6. Elevated Transaminases. Prognosis is poor. D/w his son and sister at the bedside.
[2018-09-06] MEDS ORDERED: ADRENALIN ONE (17:04)
[2018-09-06] MEDS ORDERED: D50W (25GM) Syringe IV ONE (18:20)
[2018-09-06] MEDS ORDERED: D50W (25GM) Syringe IV PRN (18:20)
[2018-09-06 18:24] LABS: Hematocrit 43.6 % (35.5-45.6)
[2018-09-07] MEDS ORDERED: HumaLOG SUB-Q SCH
[2018-09-07 01:11] LABS: Hematocrit 41.9 % (35.5-45.6); Hemoglobin 13.2 gm/dl (11.8-15.2)
[2018-09-07] MEDS: NEO-SYNEPHRINE 100 MG in NACL 0.9% 90 ML IV SCH ×2 (01:14→02:43)
[2018-09-07] MEDS: LEVOPHED 8 MG in NACL 0.9% 250ML 242 ML IV SCH (02:42)
--- NOTE | 2018-09-07 03:00 | XRay Report ---
PROCEDURE: XR CHEST 1V AP TECHNIQUE: Chest radiograph single view. HISTORY: follow up respiratory failure COMPARISONS: 09/06/2018 . FINDINGS: Heart: The heart is mildly enlarged. There is previous bypass surgery changes.. Mediastinum/Vessels: The lungs are mildly congested.. Lungs/Pleural space: There is stable bilateral interstitial edema.. Bony thorax: No acute osseous abnormality. Life support devices: The ET tube and NG tube appear in good position.. IMPRESSION: Stable chest.. This document is electronically signed by Idris Bourgeois MD., Sep 07 2018 02:58:28 AM ET
[2018-09-07 06:13] VITALS: BP 43/24
--- NOTE | 2018-09-07 08:59 | Progress Note ---
Assessment and Plan Came to evaluate patient, but notified by staff he had earlier this morning Subjective Date of service: 09/07/18 Principal diagnosis: Objective Vital Signs - 12hr 09/06/18 09/06/18 09/06/18 21:00 21:15 21:30 Temperature Pulse Rate 92 H 94 H 93 H Pulse Rate [ From Monitor] Respiratory 18 18 16 Rate Blood Pressure 85/40 111/52 90/49 O2 Sat by Pulse 88 90 91 Oximetry 09/06/18 09/06/18 09/06/18 21:45 21:59 22:00 Temperature Pulse Rate 91 H 90 90 Pulse Rate [ From Monitor] Respiratory 12 19 Rate Blood Pressure 81/46 81/46 87/46 O2 Sat by Pulse 90 89 Oximetry 09/06/18 09/06/18 09/06/18 22:15 22:30 22:45 Temperature Pulse Rate 88 86 85 Pulse Rate [ From Monitor] Respiratory 13 25 H 18 Rate Blood Pressure 102/45 91/42 96/46 O2 Sat by Pulse 90 91 91 Oximetry 09/06/18 09/06/18 09/06/18 23:00 23:08 23:15 Temperature Pulse Rate 84 83 82 Pulse Rate [ From Monitor] Respiratory 17 21 Rate Blood Pressure 86/45 86/45 92/41 O2 Sat by Pulse 91 91 92 Oximetry 09/06/18 09/06/18 09/06/18 23:19 23:30 23:31 Temperature 100.1 F H Pulse Rate 81 82 Pulse Rate [ From Monitor] Respiratory 15 19 Rate Blood Pressure 94/44 94/44 O2 Sat by Pulse 92 91 Oximetry 09/06/18 09/06/18 09/07/18 23:45 23:52 00:00 Temperature 97 F L Pulse Rate 79 79 Pulse Rate [ 78 From Monitor] Respiratory 21 22 Rate Blood Pressure 97/46 92/45 O2 Sat by Pulse 91 91 Oximetry 09/07/18 09/07/18 09/07/18 00:15 00:30 00:45 Temperature Pulse Rate 79 77 76 Pulse Rate [ From Monitor] Respiratory 25 H 22 18 Rate Blood Pressure 101/46 108/44 97/43 O2 Sat by Pulse 91 91 90 Oximetry 09/07/18 09/07/18 09/07/18 01:00 01:15 01:30 Temperature Pulse Rate 76 75 75 Pulse Rate [ From Monitor] Respiratory 19 19 13 Rate Blood Pressure 106/45 103/46 108/51 O2 Sat by Pulse 91 93 93 Oximetry 09/07/18 09/07/18 09/07/18 01:45 02:00 02:15 Temperature Pulse Rate 72 74 73 Pulse Rate [ From Monitor] Respiratory 23 20 20 Rate Blood Pressure 105/47 108/47 117/46 O2 Sat by Pulse 94 93 92 Oximetry 09/07/18 09/07/18 09/07/18 02:31 02:45 03:00 Temperature Pulse Rate 63 73 59 L Pulse Rate [ From Monitor] Respiratory 11 L 14 10 L Rate Blood Pressure 113/50 129/51 108/53 O2 Sat by Pulse 92 91 92 Oximetry 09/07/18 09/07/18 09/07/18 03:15 03:30 03:45 Temperature Pulse Rate 62 109 H 66 Pulse Rate [ From Monitor] Respiratory 13 17 17 Rate Blood Pressure 99/42 102/52 103/47 O2 Sat by Pulse 92 92 92 Oximetry 09/07/18 09/07/18 09/07/18 03:53 04:00 04:15 Temperature 101 F H Pulse Rate 63 62 Pulse Rate [ 64 From Monitor] Respiratory 15 18 Rate Blood Pressure 93/45 103/47 O2 Sat by Pulse 91 92 Oximetry 09/07/18 09/07/18 09/07/18 04:30 04:45 05:01 Temperature Pulse Rate 40 L Pulse Rate [ From Monitor] Respiratory 13 31 H 0 L Rate Blood Pressure 91/53 100/43 43/24 O2 Sat by Pulse 92 95 84 Oximetry Constitutional: alert, appears uncomfortable Eyes: icteric ENT: other (orally intubated and sedated. ) Neck: supple Effort: mildly labored Ascultation: Bilateral: diminished breath sounds Cardiovascular: irregular rhythm Gastrointestinal: soft, other (mildly distended) Extremities: cool, edema CBC and BMP: 09/07/18 00:45 09/06/18 14:55 ABG, PT/INR, D-dimer: ABG POC ABG pH 7.134 (7.35-7.45) L 09/06/18 12:50 POC ABG pCO2 45.2 (35-45) H 09/06/18 12:50 POC ABG pO2 70 (80-105) L 09/06/18 12:50 POC ABG HCO3 15.2 (22-26 mml/L) 09/06/18 12:50 POC ABG Total CO2 17 (23-27mmol/L) 09/06/18 12:50 POC ABG O2 Sat 87 09/06/18 12:50 PT/INR, D-dimer PT 29.1 Sec. (12.2-14.9) H 09/06/18 13:00 INR 2.54 (0.87-1.13) H 09/06/18 13:00 4399.70 ng/mlDDU (0-234) H 09/06/18 09:50 Abnormal lab findings: Abnormal Labs 09/04/18 09/04/18 09/05/18 07:47 07:47 07:58 WBC 13.5 H RBC 5.78 H Hgb 15.4 H 18.1 H Hct 53.2 H D MCV MCHC 35 H Seg Neuts % (Manual) Lymphocytes % (Manual) Seg Neutrophils # Man 8.4 H Lymphocytes # (Manual) Monocytes # (Manual) PT INR APTT D-Dimer POC ABG pH POC ABG pCO2 POC ABG pO2 Potassium 3.5 L Chloride Carbon Dioxide BUN Creatinine Glucose 141 H POC Glucose Calcium Phosphorus Magnesium Total Bilirubin AST ALT Total Creatine Kinase CK-MB (CK-2) Troponin T C-Reactive Protein Total Protein Albumin HDL Cholesterol 09/05/18 09/05/18 09/05/18 07:58 11:42 11:42 WBC RBC 5.60 H Hgb 17.5 H Hct 51.6 H MCV MCHC Seg Neuts % (Manual) Lymphocytes % (Manual) Seg Neutrophils # Man Lymphocytes # (Manual) Monocytes # (Manual) PT INR APTT D-Dimer POC ABG pH POC ABG pCO2 POC ABG pO2 Potassium Chloride Carbon Dioxide 18 L D BUN 29 H 35 H Creatinine 2.1 H D 2.7 H Glucose 152 H 176 H POC Glucose Calcium Phosphorus Magnesium Total Bilirubin AST ALT Total Creatine Kinase CK-MB (CK-2) Troponin T C-Reactive Protein Total Protein Albumin HDL Cholesterol 09/05/18 09/05/18 09/05/18 21:00 21:48 22:30 WBC 14.6 H RBC 5.47 H Hgb 17.4 H Hct 52.9 H MCV 97 H MCHC Seg Neuts % (Manual) 21.0 L Lymphocytes % (Manual) 10.0 L Seg Neutrophils # Man Lymphocytes # (Manual) Monocytes # (Manual) 0.9 H PT INR APTT D-Dimer POC ABG pH 7.183 L POC ABG pCO2 31.4 L POC ABG pO2 79 L Potassium Chloride Carbon Dioxide BUN Creatinine Glucose POC Glucose 146 H Calcium Phosphorus Magnesium Total Bilirubin AST ALT Total Creatine Kinase CK-MB (CK-2) Troponin T C-Reactive Protein Total Protein Albumin HDL Cholesterol 09/05/18 09/05/18 09/05/18 22:30 22:30 23:57 WBC RBC Hgb Hct MCV MCHC Seg Neuts % (Manual) Lymphocytes % (Manual) Seg Neutrophils # Man Lymphocytes # (Manual) Monocytes # (Manual) PT 18.8 H INR 1.47 H APTT D-Dimer POC ABG pH 7.062 L POC ABG pCO2 POC ABG pO2 Potassium Chloride Carbon Dioxide 12 L D BUN 45 H Creatinine 4.5 H D Glucose POC Glucose Calcium Phosphorus Magnesium Total Bilirubin AST ALT Total Creatine Kinase CK-MB (CK-2) Troponin T C-Reactive Protein Total Protein Albumin HDL Cholesterol 09/06/18 09/06/18 09/06/18 05:06 09:50 09:50 WBC 16.1 H RBC Hgb 15.6 H Hct 48.1 H MCV 97 H MCHC Seg Neuts % (Manual) Lymphocytes % (Manual) 3.0 L Seg Neutrophils # Man 8.4 H Lymphocytes # (Manual) 0.5 L Monocytes # (Manual) PT INR APTT D-Dimer POC ABG pH 7.224 L POC ABG pCO2 POC ABG pO2 Potassium Chloride 94.0 L Carbon Dioxide 17 L BUN 58 H Creatinine 5.9 H Glucose POC Glucose Calcium 7.7 L Phosphorus 11.20 H Magnesium 2.40 H Total Bilirubin 1.70 H AST 1370 H ALT 516 H Total Creatine Kinase CK-MB (CK-2) Troponin T C-Reactive Protein Total Protein 5.6 L Albumin 2.6 L HDL Cholesterol 09/06/18 09/06/18 09/06/18 09:50 09:50 09:50 WBC RBC Hgb Hct MCV MCHC Seg Neuts % (Manual) Lymphocytes % (Manual) Seg Neutrophils # Man Lymphocytes # (Manual) Monocytes # (Manual) PT INR APTT D-Dimer 4399.70 H POC ABG pH POC ABG pCO2 POC ABG pO2 Potassium Chloride Carbon Dioxide BUN Creatinine Glucose POC Glucose Calcium Phosphorus Magnesium Total Bilirubin AST ALT Total Creatine Kinase 6368 H CK-MB (CK-2) 165.1 H Troponin T 0.088 H D C-Reactive Protein 46.60 H Total Protein Albumin HDL Cholesterol 22 L 09/06/18 09/06/18 09/06/18 12:39 12:50 13:00 WBC RBC Hgb Hct MCV MCHC Seg Neuts % (Manual) Lymphocytes % (Manual) Seg Neutrophils # Man Lymphocytes # (Manual) Monocytes # (Manual) PT 29.1 H INR 2.54 H APTT 40.5 H D-Dimer POC ABG pH 7.134 L POC ABG pCO2 45.2 H POC ABG pO2 70 L Potassium Chloride Carbon Dioxide BUN Creatinine Glucose POC Glucose 155 H Calcium Phosphorus Magnesium Total Bilirubin AST ALT Total Creatine Kinase CK-MB (CK-2) Troponin T C-Reactive Protein Total Protein Albumin HDL Cholesterol 09/06/18 09/06/18 09/06/18 14:55 18:16 19:20 WBC RBC Hgb Hct MCV MCHC Seg Neuts % (Manual) Lymphocytes % (Manual) Seg Neutrophils # Man Lymphocytes # (Manual) Monocytes # (Manual) PT INR APTT D-Dimer POC ABG pH POC ABG pCO2 POC ABG pO2 Potassium Chloride 91.7 L Carbon Dioxide 14 L BUN 63 H Creatinine 6.3 H Glucose POC Glucose 52 L 143 H Calcium 7.0 L Phosphorus Magnesium Total Bilirubin AST ALT Total Creatine Kinase CK-MB (CK-2) Troponin T C-Reactive Protein Total Protein Albumin HDL Cholesterol
[2018-09-07] MEDS ORDERED: LEVAQUIN 500MG/100ML 500 MG/100 ML BAG IV SCH (22:00)
--- NOTE | 2018-09-13 07:44 | Death Summary ---
Summary - Providers Date of service: 09/07/18 Consults: 09/04/18 09:16 Consult to Physician [CONS] Routine Comment: @[id number] CLD TO [facility] OF CONSULT Consulting Provider: LARY RICHARDSON Physician Instructions: Reason For Exam: Chest pain 09/05/18 18:36 Consult to Physician [CONS] Routine Comment: Consulting Provider: MARY SIDHU Physician Instructions: Reason For Exam: [place] 09/05/18 22:39 Consult to Dietitian/Nutrition [CONS] Routine Physician Instructions: Reason For Exam: Reason for Consult: Evaluate nutritional intake Consult to Physician [CONS] Routine Comment: Consulting Provider: MACK DOWNS Physician Instructions: Reason For Exam: Sepsis, ICU Admission 09/06/18 08:41 Consult to Physician [CONS] Routine Comment: Consulting Provider: LINDSAY FALCON Physician Instructions: Reason For Exam: Sepsis/septic shock Attending: TRISTAN DREW - summary Date of admission: 09/04/18 08:43 Date of : 09/07/18 (at 05:00 AM) Reason for admission: Chest pain Significant findings: 78 yo male patient with history of coronary artery disease s/p CABG, hypertension, dementia. Was admitted through emergency room with chest pain, evaluated by cardiology patient was found to be stable , cardiology cleared for discharge , however patient had worsening acute renal failure and last night code MET was called as patient was found to be in acute respiratory failure and hypotension requiring intubation and ventilatory support. Patient was transferred to ICU placed on Levophed and vasopressin ,empiric antibiotics and pulmonary critical, nephrology, ID consulted.cardiology followed the patient. Patient received appropriate treatment ,however continued to deteriorate hemody namically and clinically. On 09/06/18 Around 11:34 AM patient had cardiac arrest CODE BLUE was called, CPR was done per ACLS protocol Supervised by souvenir and novelty maker Dr. Downs, spontaneous circulation returned, medications were optimized Discussed in detail with the family mainly patient's son and his sister , patient's condition and poor prognosis, treatment plan and code status.They had numerous questions and concerns and I addressed evry one of them After discussing With his family, patient's son has decided DO NOT RESUSCITATE status. and Signed necessary papers. Patient DNR status ; with full treatment. As per medical records On 09/07/18 wind field service manager hrs patient and was pronounced by night Nurse Practitioner AdalgisaJoe Kidd. Time of : 05:00 hrs[ 5 Am ] on 09/07/18. I was not present when patient . Diagnosis and management: --Acute hypoxic respiratory failure: requiring intubation, on ventilatory support Nebulizers, IV antibiotics, pulmonary critical consultation wean as tolerated and extubate --s/p Cardiac Arrest : s/p CPR per ACLS protocol --Septic shock/hypotension: cont Levophed and vasopressin IV fluids Supportive care --Sepsis; hypotension, leukocytosis, possible pneumonia Empiric antibiotics, follow cultures, ID consult --Acute Kidney injury :worsening renal function, oliguria due to vasomotor nephropathy,renal US findings reviewed Gentle hydration,avoid nephrotoxins,Nephrology consultation --Acute Liver Failure: Monitor transaminases -- Elevated d dimers: patient has liver failure,coagulopathy INR 2.5 Critically ill with acute renal failure, unable to get CTA chest or VQ scan supportive care --Rhabdomyolysis: Nephrology following --Chest pain; present on admission,cardiology following Continue current cardiac medications --NSTEMI : cardiology following --h/o CAD s/p CABG: Continue current medications --Dementia; continue Aricept and Namenda, supportive care --Severe malnutrition/Hypoalbumunemia : consult installation & maintenance executive --DVT prophylaxis; SCD --DNR status Patient Procedures/treatments rendered: Intubation and mechanical ventilation Pertinent studies: Multiple chest xrays Abdominal xrays Renal US Disposition: Patient - Final diagnosis (1) Acute respiratory failure with hypoxia Note: Final diagnosis: (2) Septic shock Note: Final diagnosis: (3) Acute renal failure Note: Final diagnosis: (4) CAD (coronary artery disease) of artery bypass graft Note: Final diagnosis: (5) Cardiac arrest Note: Final diagnosis: (6) Acute liver failure Note: Final diagnosis: (7) Rhabdomyolysis Note: Final diagnosis: (8) Dementia Note: Final diagnosis: (9) NSTEMI (non-ST elevated myocardial infarction) Note: Final diagnosis: (10) Coagulopathy Note: Final diagnosis: (11) Severe malnutrition Note: Final diagnosis: (12) Hypoalbuminemia due to protein-calorie malnutrition Note: Final diagnosis:
== END 2018-09-07 07:45 | DRG 302 ==
LOC: ED 07:36 → 4A 08:43 → CC1 09-05 21:48
PROVIDERS: ADMIT Internal Medicine; ATTEND Internal Medicine
PROC: 5A1945Z Respiratory Ventilation, 24-96 Consecutive Hours (ICD-10-PCS; principal; 2018-09-05)
PROC: 0BH17EZ Insertion of Endotracheal Airway into Trachea, Via Natural or Artificial Opening (ICD-10-PCS; 2018-09-05)
PROC: 5A09357 Assistance with Respiratory Ventilation, Less than 24 Consecutive Hours, Continuous Positive Airway Pressure (ICD-10-PCS; 2018-09-05)
PROC: 06HY33Z Insertion of Infusion Device into Lower Vein, Percutaneous Approach (ICD-10-PCS; 2018-09-05)
PROC: 4A033R1 Measurement of Arterial Saturation, Peripheral, Percutaneous Approach (ICD-10-PCS; 2018-09-06)
PROC: 5A12012 Performance of Cardiac Output, Single, Manual (ICD-10-PCS; 2018-09-06)
DX: I25.10 Atherosclerotic heart disease of native coronary artery without angina pectoris (principal); N17.0 Acute kidney failure with tubular necrosis; J96.01 Acute respiratory failure with hypoxia; A41.9 Sepsis, unspecified organism; R65.21 Severe sepsis with septic shock; G92 Toxic encephalopathy; M62.82 Rhabdomyolysis; R07.9 Chest pain, unspecified; I46.9 Cardiac arrest, cause unspecified; Z66 Do not resuscitate; E11.9 Type 2 diabetes mellitus without complications; I48.0 Paroxysmal atrial fibrillation; E78.5 Hyperlipidemia, unspecified; J44.9 Chronic obstructive pulmonary disease, unspecified; F03.90 Unspecified dementia, unspecified severity, without behavioral disturbance, psychotic disturbance, mood disturbance, and anxiety; I11.0 Hypertensive heart disease with heart failure; I50.9 Heart failure, unspecified; F17.200 Nicotine dependence, unspecified, uncomplicated; R74.0 Nonspecific elevation of levels of transaminase and lactic acid dehydrogenase [LDH]; Z88.0 Allergy status to penicillin; Z79.899 Other long term (current) drug therapy; Z95.1 Presence of aortocoronary bypass graft; I25.2 Old myocardial infarction; Z87.442 Personal history of urinary calculi; Z79.82 Long term (current) use of aspirin
CPT/HCPCS: 36415; 36600; 71045; 71046; 74018; 76770; 80048; 80053; 80061; 82550; 82553; 82803; 82962; 83735; 83880; 84100; 84484; 85007; 85014; 85018; 85025; 85027; 85379; 85610; 85730; 86140; 87040; 87205; 93005; 93010; 94002; 94640; 94660; 94760; 96374; 99406; G0378; J0171; J0330; J1450; J1650; J1720; J1940; J1956; J2185; J2250; J2270; J2370; J2405; J2930; J3370; J7030; J7050; J7070